=== PATIENT | female | born 1965 | race Caucasian/White ===

== ENCOUNTER 2020-10-30 17:16 | Emergency (ER) | payer BC, OTHER ==
--- NOTE | 2020-10-30 19:18 | RAD REPORT ---
EXAM DESCRIPTION: MRI - Brain W/Wo Cont - 10/30/2020 6:47 pm CLINICAL HISTORY: Visual disturbance COMPARISON: None TECHNIQUE: Axial, sagittal, and coronal magnetic images of the brain were obtained. 14 cc MultiHance administered intravenously FINDINGS: No significant abnormal signal within the brain The ventricles are normal in caliber. Diffusion-weighted/ ADC mapping sequences do not demonstrate evidence of an acute infarction. No abnormal enhancement within the brain is seen. An extra-axial fluid collection is not noted. Fluid within the sinuses/mastoids is not seen. Mucus retention cysts left maxillary sinus. Minimal mu coperiosteal thickening of sinuses. IMPRESSION: No acute intracranial abnormality displayed
[2020-10-30 20:09] LABS: Absolute Lymphocytes (CBC) 1.6 K/uL (0.7-4.9); Basophils % 0.4 % (0-1.3); Hematocrit 32.6 % (36.0-45.0); Lymphocytes % 35.9 % (15.3-44.8); MPV 6.5 fL (7.6-11.3); RBC Red Blood Cell Count 3.74 M/uL (3.86-4.86)
[2020-10-30] MEDS ORDERED: TETRACAINE HCL 0.5% 4ML OPTH ONE (20:15)
[2020-10-30] MEDS ORDERED: FLUORESCEIN SODIUM 1 MG/WRAP ONE (20:15)
[2020-10-30 20:21] LABS: Potassium 3.7 mmol/L (3.5-5.1)
--- NOTE | 2020-10-30 21:06 | EDPHYS ---
Physician Documentation [facility] Name: Joanne Morales Age: 55 yrs Sex: Female : 1965 Arrival Date: 10/30/2020 Time: 17:19 Bed 6 Private MD: ED Physician Seven Dover HPI: 10/30 19:45 This 55 yrs old Female presents to ER via Ambulatory with complaints of cp Vision Problem. 19:45 The patient is experiencing double vision, to the right eye. cp 19:45 Onset: The symptoms/episode began/occurred yesterday. Duration: the symptoms are cp continuous. Patient wears glasses. 19:45 Patient reports symptoms started last week with headache on right side of head. Patient cp reports being seen at [facility] and having head CT that was negative. Patient reports she f/u with physician Monday and was diagnosed with herpes ophthalmicus of the right side. Patient reports she has been taking prescribed Valcyclovir, gabapentin, Trifluridine eye drops and Prednisolone eye drops. Patient reports she started having double vision of right eye yesterday and was referred to ED today by eye doctor, DR Yee, for evaluation. 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 - Social history:: Smoking status: Patient denies any tobacco usage or history of. ROS: 19:50 Eyes: Positive for blurry vision, pain, redness, of the right eye, Negative for cp discharge, foreign body sensation, vision loss. 19:50 ENT: Negative for drainage from ear(s), ear pain, sore throat, difficulty swallowing, difficulty handling secretions. 19:50 Constitutional: Negative for body aches, chills, fever, poor PO intake. cp 19:50 Neck: Negative for pain with movement, pain at rest, stiffness. 19:50 Cardiovascular: Negative for chest pain, edema, palpitations. 19:50 Respiratory: Negative for cough, shortness of breath, wheezing. 19:50 Abdomen/GI: Negative for abdominal pain, nausea, vomiting, and diarrhea. 19:50 Skin: Positive for rash, of the right side of face. 19:50 Neuro: Positive for headache, of the right side of head, Negative for altered mental status, dizziness, weakness. 19:50 All other systems are negative. Exam: 20:00 Constitutional: The patient appears in no acute distress, alert, awake, non-toxic, well cp developed, well nourished. 20:00 Head/face: Noted is rash, consistent with herpes zoster cp 20:00 Eyes: Pupils: equal, round, and reactive to light and accomodation, Extraocular movements: intact throughout, Conjunctiva: injected, in the right eye, mild, Corneas: no acute changes, negative for dendritic lesions, abrasion, is not appreciated, foreign body, is not appreciated, a fluorescein strip employed to appreciate the findings, Examination of the other eye reveals no obvious gross abnormality. 20:00 ENT: External ear(s): are unremarkable, Ear canal(s): are normal, clear, TM's: dullness, bilaterally, Nose: is normal, Mouth: Lips: moist, Oral mucosa: pink and intact, moist, Posterior pharynx: Airway: no evidence of obstruction, patent. 20:00 Neck: ROM/movement: is normal, is supple, without pain, no range of motions limitations, no meningismus. 20:00 Chest/axilla: Inspection: normal. 20:00 Cardiovascular: Rate: normal. 20:00 Respiratory: the patient does not display signs of respiratory distress, Respirations: normal, no use of accessory muscles, no retractions. 20:00 Skin: cellulitis, is not appreciated. 20:00 Neuro: Orientation: to person, place \T\ time. Mentation: is normal, Cerebellar function: is grossly normal, Motor: moves all fours, strength is normal, Sensation: is normal. 20:15 Visual Acuity: I have reviewed the nursing documentation. cp Vital Signs: 17:29 BP 138 / 72; Pulse 81; Resp 17; Temp 98.3; Pulse Ox 100% ; Weight 64.41 kg; Height 5 ll1 ft. 4 in. (162.56 cm); Pain 3/10; 19:35 BP 142 / 65; Pulse 65; Resp 16 S; Pulse Ox 100% on R/A; ca1 21:14 BP 132 / 76; Pulse 63; Resp 16 S; Pulse Ox 100% on R/A; ca1 17:29 Body Mass Index 24.37 (64.41 kg, 162.56 cm) ll1 Visual Acuity: 20:11 Left Eye Visual acuity 20/25, ; Right Eye Visual acuity 20/50, ; Both Eyes Visual ca1 acuity 20/30; With Lenses; MDM: 19:43 Patient medically screened. cp 20:00 Differential diagnosis: Infectious conjunctivitis in right eye. encephalitis. cp 20:45 Physician consultation: Jayjay Messina MD was contacted at 20:35, regarding consult, cp patient's condition, discussed results of exam, current medication treatment and normal Brain MRI results. Recommends discharge to home and patient can f/u in clinic. Start patient on Medrol dose salvador and oral Topamax 25 mg at bedtime for pain. 21:05 Data reviewed: vital signs, nurses notes, lab test result(s), radiologic studies, MRI, cp and as a result, I will discharge patient. 21:05 Counseling: I had a detailed discussion with the patient and/or guardian regarding: the cp historical points, exam findings, and any diagnostic results supporting the discharge/admit diagnosis, lab results, radiology results, to return to the emergency department if symptoms worsen or persist or if there are any questions or concerns that arise at home, recommend f/u with neurology, DR Messina, next week for reevaluation. 10/30 17:40 Order name: CBC with Diff; Complete Time: 20:23 kdr 10/30 20:24 Interpretation: Normal except: RBC 3.74; HGB 11.3; HCT 32.6; MN% 14.2. 10/30 17:40 Order name: Chem 7; Complete Time: 20:23 kdr 10/30 20:24 Interpretation: Normal except: CL 108; BUN 21; GFR 60. cp 10/30 17:40 Order name: MRI - Brain W/Wo Cont; Complete Time: 19:29 kdr 10/30 19:44 Order name: Visual Acuity; Complete Time: 20:10 cp 10/30 19:44 Order name: Eye Tray; Complete Time: 20:11 cp 10/30 19:44 Order name: Fluoresene Opth strip; Complete Time: 20:11 cp Administered Medications: 20:17 Drug: Tetracaine Drops 0.5 % 1 drops {Note: by VICKY Ovalles.} Route: Ophthalmic; Site: ca1 right eye; 20:54 Drug: SOLU-Medrol (methylPrednisoLONE) 80 mg Route: IVP; Site: right antecubital; ca1 21:22 Follow up: Response: No adverse reaction ca1 20:54 Drug: NS 0.9% 500 ml Route: IV; Rate: bolus; Site: right antecubital; ca1 21:23 Follow up: Response: No adverse reaction; IV Status: Completed infusion; IV Intake: ca1 500ml Disposition: 21:30 Chart complete. 10/31 07:44 Co-signature as Attending Physician, Seven Dover MD. 7 Disposition: 10/30/20 21:05 Discharged to Home. Impression: Visual disturbances - right eye blurry vision, Other herpes zoster eye disease - right. - Condition is Stable. - Discharge Instructions: Blurred Vision, Adult, Shingles. - Prescriptions for Topamax 25 mg Oral tablet - take 1 tablet by ORAL route At bedtime in the morning and evening; 30 tablet. Medrol (Salvador) 4 mg Oral Tablets, Dose Pack - take 1 tablet by ORAL route as directed - follow package instructions; 1 packet. - Medication Reconciliation Form, Thank You Letter, Antibiotic Education, Prescription Opioid Use form. - Follow up: Jayjay Messina MD; When: next week; Reason: Recheck today's complaints. - Problem is new. - Symptoms are unchanged. Signatures: Dispatcher [employer] EDMS Josr Bender PA PA cp Acob, Cheryl, RN RN ca1 Andreina Melgoza RN RN 1 Seven Dover MD MD 7 Corrections: (The following items were deleted from the chart) 10/30 21:23 21:05 10/30/2020 21:05 Discharged to Home. Impression: Visual disturbances - right eye ca1 blurry visionOther herpes zoster eye disease - right. Condition is Stable. Forms are Medication Reconciliation Form, Thank You Letter, Antibiotic Education, Prescription Opioid Use. Follow up: Jayjay Messina; When: next week; Reason: Recheck today's complaints. Problem is new. Symptoms are unchanged. 10/31 10:48 10/30 19:45 Patient reports symptoms started last week with headache on right side of cp head. Patient reports being seen at [place] and having head CT that was negative. Patient reports she f/u with physician Monday and was diagnosed with herpes ophthalmicus of the right side. Patient reports she has been taking prescribed Valcyclovir, gabapentin, Trifluridine eye drops and Prednisolone eye drops. Patient reports she started having double vision of right eye yesterday and was referred to ED today by eye doctor for evaluation. cp
--- NOTE | 2020-10-30 21:06 | ER ---
Nurse's Notes [facility] Name: Joanne Morales Age: 55 yrs Sex: Female : 1965 Arrival Date: 10/30/2020 Time: 17:19 Bed 6 Private MD: Diagnosis: Other herpes zoster eye disease-right;Visual disturbances-right eye blurry vision Presentation: 10/30 17:29 Chief complaint: Patient states: Awoke yesterday morning with double vision. Saw Dr. lianne Yee today, sent to eval. possible 6th cranial nerve zoster. Shingles diagnosed last week R face. Coronavirus screen: Client denies travel out of the [place] in the last 14 days. At this time, the client does not indicate any symptoms associated with coronavirus-19. Ebola Screen: Patient denies travel to an Ebola-affected area in the 21 days before illness onset. Initial Sepsis Screen: Does the patient meet any 2 criteria? No. Patient's initial sepsis screen is negative. Does the patient have a suspected source of infection? Yes: Skin breakdown/wound. Risk Assessment: Do you want to hurt yourself or someone else? Patient reports no desire to harm self or others. Onset of symptoms was October 29, 2020. 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 - Social history:: Smoking status: Patient denies any tobacco usage or history of. Screenin:31 Abuse screen: Denies threats or abuse. Denies injuries from another. Nutritional ca1 screening: No deficits noted. Tuberculosis screening: No symptoms or risk factors identified. Fall Risk Assessment: 19:31 General: Appears in no apparent distress. comfortable, Behavior is calm, cooperative, ca1 appropriate for age. Pain: Complains of pain in face, R side Pain currently is 6 out of 10 on a pain scale. Pain began a week ago. Neuro: Level of Consciousness is awake, alert, obeys commands, Oriented to person, place, time, situation, Reports diplopia, on R eye. Cardiovascular: Heart tones S1 S2 present Capillary refill < 3 seconds. Respiratory: Airway is patent Respiratory effort is even, unlabored, Respiratory pattern is regular, symmetrical, Breath sounds are clear bilaterally. GI: Abdomen is flat, Bowel sounds present X 4 quads. Abd is soft and non tender X 4 quads. : No signs and/or symptoms were reported regarding the genitourinary system. EENT: Reports my doctor said I got Nerve palsy caused by the Shingles so I am seeing double on my R eye. Derm: Skin is intact, is healthy with good turgor, Skin is pink, warm \T\ dry. Rash noted that is raised, vesicular, on face. Musculoskeletal: Circulation, motion, and sensation intact. Capillary refill < 3 seconds. 20:30 Reassessment: Patient appears in no apparent distress at this time. Patient and/or ca1 family updated on plan of care and expected duration. Pain level reassessed. Patient is alert, oriented x 3, equal unlabored respirations, skin warm/dry/pink. 21:14 Reassessment: Patient appears in no apparent distress at this time. Patient and/or ca1 family updated on plan of care and expected duration. Pain level reassessed. Patient is alert, oriented x 3, equal unlabored respirations, skin warm/dry/pink. For Discharge once fluid is completed. Vital Signs: 17:29 BP 138 / 72; Pulse 81; Resp 17; Temp 98.3; Pulse Ox 100% ; Weight 64.41 kg; Height 5 ll1 ft. 4 in. (162.56 cm); Pain 3/10; 19:35 BP 142 / 65; Pulse 65; Resp 16 S; Pulse Ox 100% on R/A; ca1 21:14 BP 132 / 76; Pulse 63; Resp 16 S; Pulse Ox 100% on R/A; ca1 17:29 Body Mass Index 24.37 (64.41 kg, 162.56 cm) ll1 Visual Acuity: 20:11 Left Eye Visual acuity 20/25, ; Right Eye Visual acuity 20/50, ; Both Eyes Visual ca1 acuity 20/30; With Lenses; ED Course: 17:19 Patient arrived in ED. as 17:24 Fox Loera MD is Attending Physician. kdr 17:33 Triage completed. ll1 17:34 Arm band placed on. ll1 18:44 MRI - Brain W/Wo Cont In Process Unspecified. EDMS 19:24 Jessie Johnson, RN is Primary Nurse. ca1 19:29 Josr Bender PA is PHCP. cp 19:29 Seven Dover MD is Attending Physician. cp 19:31 Patient has correct armband on for positive identification. Bed in low position. Call ca1 light in reach. Side rails up X 1. Pulse ox on. NIBP on. Warm blanket given. 21:01 Jayjay Messina MD is Referral Physician. cp 21:21 No provider procedures requiring assistance completed. IV discontinued, intact, ca1 bleeding controlled, No redness/swelling at site. Pressure dressing applied. Administered Medications: 20:17 Drug: Tetracaine Drops 0.5 % 1 drops {Note: by VICKY Ovalles.} Route: Ophthalmic; Site: ca1 right eye; 20:54 Drug: SOLU-Medrol (methylPrednisoLONE) 80 mg Route: IVP; Site: right antecubital; ca1 21:22 Follow up: Response: No adverse reaction ca1 20:54 Drug: NS 0.9% 500 ml Route: IV; Rate: bolus; Site: right antecubital; ca1 21:23 Follow up: Response: No adverse reaction; IV Status: Completed infusion; IV Intake: ca1 500ml Intake: 21:23 IV: 500ml; Total: 500ml. ca1 Outcome: 21:05 Discharge ordered by . cp 21:21 Discharged to home ambulatory, with family. ca1 21:21 Condition: stable 21:21 Discharge instructions given to patient, Instructed on discharge instructions, follow up and referral plans. medication usage, Demonstrated understanding of instructions, follow-up care, medications, Prescriptions given X 2. 21:23 Patient left the ED. ca1 Signatures: Dispatcher [employer] EDMS Fox Loera MD MD kdr Martinez, Amelia as Josr Bender PA PA cp Jessie Johnson RN RN ca1 Andreina Melgoza RN RN ll1
[2020-10-30] MEDS ORDERED: METHYLPREDNISOLONE 40 MG INJ ONE (21:12)
[2020-10-30] MEDS ORDERED: NA CHLORIDE 0.9% 500 ML ONE (21:12)
[2020-10-30 21:28] VITALS: TEMP 98.3; O2SAT 100
[2020-10-30 21:32] VITALS: BP 132/76
== END 2020-10-30 21:23 | disposition home or self-care (01) ==
LOC: ER 17:16
DX: B02.30 Zoster ocular disease, unspecified (principal); Z88.2 Allergy status to sulfonamides
CPT/HCPCS: 85025; 80048; 36415; 70553; 96374; 99284; A9577; J7040; J2920

== ENCOUNTER 2022-09-26 19:19 | Emergency (ER) | payer BC, OTHER ==
--- OUTSIDE RECORDS SUMMARY | 2022-09-26 19:57 | XMS REPORT | Continuity of Care Document ---
:1965 Author Organization [facility] t Address [address] [place] [address] [address] [place] [address] Care Team Providers Name Role Phone Johanny LINDSAY, Roshni Rodriguez Primary Care Physician [phone] ROSA ELENA RAZO Attending Clinician Unavailable KARIN BLUNT Attending Clinician Unavailable LAB90 Attending Clinician Unavailable ROSHNI ORLANDO Attending Clinician Unavailable AYDIN HERNANDEZ Attending Clinician Unavailable Johanny LINDSAY, Roshni Rodriguez Attending Clinician [phone] BREANNE MOE Attending Clinician Unavailable Morgan Godoy MD Attending Clinician [phone] YOBANY ROSALES Attending Clinician Unavailable MORGAN GODOY Attending Clinician Unavailable LAB39 Attending Clinician Unavailable KIM VITALE Attending Clinician Unavailable Payers Payer Name Policy Type Policy Number Effective Date Expiration Date [place] [address] 2 [id number] 2022 00:00:00 DEGREE BENEFIT [employer] 2 [id number] 2020 00:00:00 Problems Condition Condition Condition Status Onset Resolution Last Treating Co mments Source Name Details Category Date Date Treatment Clinician Date Dermatitis Dermatitis Disease Active 2021-06 K elsey 2-12 Seybold 00:00: - 00 Externa l Pain of Pain of Disease Active 2021-06 Sandhya right hand right hand 2-12 Se ybold 00:00: - 00 Externa l Ganglion Ganglion Disease Active 2021-06 Kelse y cyst of cyst of 2-12 Seybold flexor flexor 00:00: - tendon tendon 00 Externa sheath of sheath of l finger of finger of right hand right hand Elevated Elevated Disease Active Kelse y cholestero cholestero 609 Se ybold l - Not l - Not 00:00: - Controlled Controlled 00 Ex terna l Postmenopa Postmenopa Disease Active K elsey usal - usal - 6 Seybold Controlled Controlled 00:00: - 00 Externa l Racing Racing Disease Active Sandhya heart beat heart beat 16 Se ybold - Not - Not 00:00: - Controlled Controlled 00 Ex terna l Shingles Shingles Disease Active Kelse y rash rash 616 Seybold 00:00: - 00 Externa l Insomnia Insomnia Disease Active Kelse y 16 Seybold 00:00: - 00 Externa l Allergies, Adverse Reactions, Alerts Allergy Allergy Status Severity Reaction(s) Onset Inactive Treating Comm ents Source Name Type Date Date Clinician Sulfa Propensi Active Sandhya Drugs ty to 6-08 Seybold adverse 00:00: reaction 00 s Sulfa Propensi Active Sandhya Drugs ty to 6-08 Seybold adverse 00:00: - reaction 00 Externa s l Social History Social Habit Start Date Stop Date Quantity Comments Source Alcohol intake 2022-06-20 2022-06-20 Ex-drinker Sadnhya Shoemaker bold - 00:00:00 00:00:00 (finding) External Tobacco use and 2020-10-26 2020-10-26 Smokeless tobacco Ke lsey Seybold - exposure 00:00:00 00:00:00 non-user External Sex [birth year] At [birth year] F Sandhya Se ybold - 00:00:00 00:00:00 External Smoking Status Start Date Stop Date Source Never smoked tobacco Sandhya Matthews old - External Medications Ordered Filled Start Stop Current Ordering Indication Dosage Frequency Signature Comments Components Source Medication Medication Date Date Medication? Clinician (SIG) Name Name Methylpredn 2022- No [id number] 40mg Sandhya isolone 06-20 9102 Seybold Acetate 21:15: 22:27 - (Depo-Medro 00 :00 Externa l) 40 mg/ml l - Physician Administere d (J1030) Methylpredn 2022- No [id number] 40mg 40 mg, Sandhya isolone 06-20 9102 Physician Seybol d Acetate 21:15: 22:27 Administer - (Depo-Medro 00 :00 ed, ONCE, Ext rai l) 40 mg/ml 1 dose, On l - Physician Mon Administere 06/20/22 at d (J1030) 1515 Estradiol Yes [id number] 1mg Take 1 Sandhya MG oral 6-09 tablet (1 Seybold Tablet 00:00: mg total) - 00 by mouth Externa daily l Estradiol Yes [id number] 1mg Take 1 Sandhya MG oral 6-09 tablet (1 Seybold Tablet 00:00: mg total) - 00 by mouth Externa daily l Trazodone Yes [id number] 50mg Take 1 K elsey HCl 50 MG 6-09 tablet (50 Seyb old oral Tablet 00:00: mg total) - 00 by mouth Externa nightly l Estradiol Yes [id number] 1mg Take 1 Sandhya MG oral 6-09 tablet (1 Seybold Tablet 00:00: mg total) - 00 by mouth Externa daily l Estradiol Yes [id number] 1mg Take 1 Sandhya MG oral 6-09 tablet (1 Seybold Tablet 00:00: mg total) - 00 by mouth Externa daily l Trazodone 2022- No [id number] 50mg Take 1 Sandhya HCl 50 MG 6-09 01-10 tablet (50 Sey bold oral Tablet 00:00: 00:00 mg total) - 00 :00 by mouth Externa nightly l AMITRIPTYLI Yes 25mg Take 25 mg Sandhya NE HCL IM 4-25 by mouth Seybol d 15:52: Takes at 07 night as per patient. AMITRIPTYLI 2020-06 Yes 25mg Take 25 mg Sandhya NE HCL IM 1-10 by mouth Seybol d 15:50: Takes at 53 night as per patient. Amitriptyli 2020-06 Yes [id number] 25mg TAKE 1 K elsey ne HCl 25 0-07 TABLET (25 Seyb old MG oral 00:00: MG TOTAL) Tablet 00 BY MOUTH NIGHTLY Amitriptyli 2020-06 Yes [id number] 25mg TAKE 1 K elsey ne HCl 25 0-07 TABLET (25 Seyb old MG oral 00:00: MG TOTAL) Tablet 00 BY MOUTH NIGHTLY Estradiol 1 Yes [id number] 1mg Take 1 Sandhya MG oral 6-16 tablet (1 Seybold Tablet 00:00: mg total) 00 by mouth daily Estradiol 1 Yes [id number] 1mg Take 1 Sandhya MG oral 6-16 tablet (1 Seybold Tablet 00:00: mg total) 00 by mouth daily Acetaminoph 2020-0 Yes [id number] 2 tablets Sandhya en 650 MG 5-27 every 8 Seybold oral Tab CR 00:00: hours as - 00 needed for Externa pain l Acetaminoph 2020-0 Yes [id number] 2 tablets Sandhya en 650 MG 5-27 every 8 Seybold oral Tab CR 00:00: hours as 00 needed for pain Acetaminoph 2020-0 Yes [id number] 2 tablets Sandhya en 650 MG 5-27 every 8 Seybold oral Tab CR 00:00: hours as 00 needed for pain Acetaminoph 2020-0 Yes [id number] 2 tablets Sandhya en 650 MG 5-27 every 8 Seybold oral Tab CR 00:00: hours as - 00 needed for Externa pain l Acetaminoph 2020-0 Yes [id number] 2 tablets Sandhya en 650 MG 5-27 every 8 Seybold oral Tab CR 00:00: hours as - 00 needed for Externa pain l Acetaminoph 2020-0 Yes [id number] 2 tablets Sandhya en 650 MG 5-27 every 8 Seybold oral Tab CR 00:00: hours as - 00 needed for Externa pain l Vital Signs Vital Name Observation Time Observation Value Comments Source Body height 2022-06-20 20:45:00 162.6 cm Sandhya Arnulfo conradobomeri - External Body weight 2022-06-20 20:45:00 70.761 kg Asndhya Arnulfo alexei - External BMI 2022-06-20 20:45:00 26.78 kg/m2 Sandhya S eybold - External Systolic blood 2022-06-14 22:08:00 129 mm[Hg] Sandhya Seybold - pressure External Diastolic blood 2022-06-14 22:08:00 62 mm[Hg] Kelse y Seybold - pressure External Heart rate 2022-06-14 22:08:00 67 /min Sandhya S eybold - External Body temperature 2022-06-14 22:08:00 36.11 Bridget Khadra ey Seybold - External Respiratory rate 2022-06-14 22:08:00 15 /min Khadra ey Seybold - External Body height 2022-06-14 22:08:00 162.6 cm Sandhya S eybold - External Body weight 2022-06-14 22:08:00 71.124 kg Sandhya S eybold - External BMI 2022-06-14 22:08:00 26.91 kg/m2 Sandhya Arredondo eybold - External Oxygen saturation in 2022-06-14 22:08:00 99 /min Sandhya Perryybold - Arterial blood by External Pulse oximetry Systolic blood 2022-05-16 22:11:00 124 mm[Hg] Sandhya Seybold - pressure External Diastolic blood 2022-05-16 22:11:00 60 mm[Hg] Salvadorse y Seybold - pressure External Heart rate 2022-05-16 22:11:00 65 /min Sandhya Arredondo eybold - External Body temperature 2022-05-16 22:11:00 35.67 Bridget Khadra ey Seybold - External Respiratory rate 2022-05-16 22:11:00 14 /min Khadra ey Seybold - External Body height 2022-05-16 22:11:00 162.6 cm Sandhya S eybold - External Body weight 2022-05-16 22:11:00 71.215 kg Sandhya S eybold - External BMI 2022-05-16 22:11:00 26.95 kg/m2 Sandhya S eybold - External Systolic blood 2021-09-27 20:51:00 125 mm[Hg] Sandhya Seybold pressure Diastolic blood 2021-09-27 20:51:00 69 mm[Hg] Kelse y Seybold pressure Heart rate 2021-09-27 20:51:00 66 /min Sandhya campbomeri Body temperature 2021-09-27 20:51:00 36.56 Bridget Khadra ey Seybold Respiratory rate 2021-09-27 20:51:00 14 /min Khadra camp Seybomar Body height 2021-09-27 20:51:00 162.6 cm Sandhya linda Body weight 2021-09-27 20:51:00 68.402 kg Sandhya campbomeri BMI 2021-09-27 20:51:00 25.88 kg/m2 Sandhya linda Oxygen saturation in 2021-09-27 20:51:00 99 /min Sandhya To Arterial blood by Pulse oximetry Procedures This patient has no known procedures. Encounters Start End Encounter Admission Attending Care Care Encounter Source Date/Time Date/Time Type Type Clinicians Facility Department ID 2022-07-21 2022-07-21 Outpatient ROSA ELENA RAZO [id number] Sandhya 15:15:00 15:15:00 Seybol d 2022-06-20 2022-06-20 Outpatient SANDHYA BLUNT [id number] Sandhya 14:30:00 14:30:00 KARIN Seybol d 2022-06-20 2022-06-20 Outpatient SANDHYA LUNDBERG [id number] Sandhya 14:25:00 14:25:00 Seybol d 2022-06-20 2022-06-20 Outpatient SANDHYA BLUNT [id number] Sandhya 00:00:00 00:00:00 KARIN Seybol d 2022-06-17 2022-06-17 Outpatient ROSA ELENA RAZO [id number] Sandhya 13:15:00 13:15:00 Seybol d 2022-06-14 2022-06-14 Outpatient LAB90 SANDHYA LUNDBERG [id number] Sandhya 16:35:00 16:35:00 Seybol d 2022-06-14 2022-06-14 Outpatient SANDHYA ORLANDO [id number] Sandhya 15:45:00 15:45:00 ROSHNI Seybol d 2022-05-16 2022-05-16 Outpatient SANDHYA HERNANDEZ [id number] Sandhya 15:45:00 15:45:00 AYDIN Seybol d 2022-01-05 2022-01-05 Outpatient LAB90 SANDHYA LUNDBERG [id number] Sandhya 09:50:00 09:50:00 Seybol d 2022-01-05 2022-01-05 Outpatient JOHANNYSANDHYA ECKERT [id number] Sandhya 00:00:00 00:00:00 ROSHNI Seybol d 2021-11-11 2021-11-11 Office Diego Orlando [id number] Sandhya 15:30:00 16:00:00 Visit Roshni Rebolledo [id number] Se rasta Rodriguez [id number] 2021-10-06 2021-10-06 Outpatient SANDHYA ORLANDO [id number] Sandhya 00:00:00 00:00:00 ROSHNI Seybol d 2021-09-27 2021-09-27 Office Diego Orlando [id number] Sandhya 15:30:00 16:00:00 Visit Roshni Rebolledo [id number] Se serinaomar Jennifer [id number] 2021-04-14 2021-04-14 Outpatient BREANNE MOE [id number] Sandhya 16:25:00 16:25:00 Seybol d 2021-04-14 2021-04-14 Office JYOTI Godoy [id number] Sandhya 15:46:32 16:01:32 Visit [facility] [id number] S alexei Treviño [id number] 2021-01-26 2021-01-26 Outpatient SANDHYA ROSALES [id number] Sandhya 08:30:00 08:30:00 MUHAMMED Seybo ld 2021-01-13 2021-01-13 Outpatient BREANNE MOE [id number] Sandhya 17:05:00 17:05:00 Seybol d 2021-01-13 2021-01-13 Outpatient SANDHYA GODOY [id number] Sandhya 15:45:00 15:45:00 MORGAN Seybo ld 2020-12-23 2020-12-23 Outpatient BREANNE MOE SANDHYA LUNDBERG [id number] Sandhya 12:00:00 12:00:00 Seybol d 2020-12-23 2020-12-23 Outpatient LAB39 SANDHYA LUNDBERG [id number] Sandhya 09:50:00 09:50:00 Seybol d 2020-12-23 2020-12-23 Outpatient SANDHYA GODOY [id number] Sandhya 08:45:00 08:45:00 MORGAN Seybo ld 2020-12-22 2020-12-22 Outpatient SANDHYA ROSALES [id number] Sandhya 00:00:00 00:00:00 MUHAMMED Seybo ld 2020-12-17 2020-12-17 Outpatient SANDHYA ROSALES [id number] Sandhya 11:00:00 11:00:00 MUHAMMED Seybo ld 2020-12-15 2020-12-15 Outpatient SANDHYA VITALE [id number] Sandhya 00:00:00 00:00:00 KMI Seybol d 2020-12-15 2020-12-15 Outpatient SANDHYA ORLANDO [id number] Sandhya 00:00:00 00:00:00 ROSHNI Seybol d Results This patient has no known results.
--- NOTE | 2022-09-26 22:04 | RAD REPORT ---
EXAM DESCRIPTION: Glenys Single View09/26/2022 9:45 pm CLINICAL HISTORY: dizzy, nauseated COMPARISON: No Comparisons> TECHNIQUE: Portable AP view of the chest. FINDINGS: The lungs are clear. No pneumothorax or effusion. The cardiomediastinal contours are unrem arkable. IMPRESSION: No acute cardiopulmonary process.
[2022-09-26 22:24] LABS: Hematocrit 38.2 % (36.0-45.0); Lymphocytes % 8.2 % (15.3-44.8); MCV 88.1 fL (80-100); MPV 7.4 fL (7.6-11.3); RBC Red Blood Cell Count 4.34 M/uL (3.86-4.86)
[2022-09-26 22:27] LABS: Protime INR 0.97
[2022-09-26 22:38] LABS: ALT/SGPT 25 U/L (13-56); AST/SGOT 12 U/L (15-37); Alkaline Phosphatase 60 U/L (45-117); BUN Blood Urea Nitrogen 20 mg/dL (7-18); Bicarbonate 27 mEq/L (21-32); Bilirubin Total 0.3 mg/dL (0.2-1.0); Glomerular Filtration Rate 101 ml/min (=/>90); Glucose Level 105 mg/dL (74-106); NT PRO-BNP 93 pg/mL (<125); Potassium 4.2 mEq/L (3.5-5.1); Protein, Total 7.2 g/dL (6.4-8.2); Sodium Level 135 mEq/L (136-145); Troponin High Sensitivity 11.3 pg/mL (<58.9)
[2022-09-26 22:39] LABS: Bilirubin Direct < 0.1 mg/dL (0-0.2)
--- NOTE | 2022-09-26 23:50 | ER ---
Nurse's Notes [facility] Name: Joanne Morales Age: 57 yrs Sex: Female : 1965 Arrival Date: 09/26/2022 Time: 19:19 Bed 19 Private MD: Diagnosis: Palpitations;Weakness Presentation: 09/26 20:23 Chief complaint: Patient states: "I started feeling palpitations yesterday, and today I vc1 was at my exercising class and it happened, my heart rate was 138 and I felt dizzy and nauseous.". Coronavirus screen: Vaccine status: Patient reports being unvaccinated. At this time, the client does not indicate any symptoms associated with coronavirus-19. Ebola Screen: Patient negative for fever greater than or equal to 101.5 degrees Fahrenheit, and additional compatible Ebola Virus Disease symptoms Patient denies exposure to infectious person. Patient denies travel to an Ebola-affected area in the 21 days before illness onset. No symptoms or risks identified at this time. Initial Sepsis Screen: Does the patient meet any 2 criteria? No. Patient's initial sepsis screen is negative. Does the patient have a suspected source of infection? No. Patient's initial sepsis screen is negative. Risk Assessment: Do you want to hurt yourself or someone else? Patient reports no desire to harm self or others. Onset of symptoms was September 25, 2022. 20:23 Method Of Arrival: Ambulatory vc1 20:23 Acuity: DEION 4 vc1 Triage Assessment: 20:27 General: Appears in no apparent distress. comfortable, Behavior is calm, cooperative, vc1 appropriate for age. Pain: Complains of pain in neck. EENT: No deficits noted. Neuro: Level of Consciousness is awake, alert, obeys commands, Oriented to person, place, time, situation, Appropriate for age. Cardiovascular: No deficits noted. Cardiovascular: Reports diaphoresis, lightheadedness, nausea, palpitations, vomiting. Respiratory: Airway is patent Respiratory effort is even, unlabored, Respiratory pattern is regular, symmetrical. GI: No deficits noted. No signs and/or symptoms were reported involving the gastrointestinal system. : No deficits noted. No signs and/or symptoms were reported regarding the genitourinary system. Historical: - Allergies: 20:25 Sulfa (Sulfonamide Antibiotics); vc1 - Home Meds: 20:25 estradiol 1 mg Oral tablet daily [Active]; vc1 - PMHx: 20:25 Endometriosis of vagina; thyroid tumor; vc1 - PSHx: 20:25 Total abdominal hysterectomy; vc1 - Immunization history:: Client reports having NOT received the Covid vaccine. - Social history:: Smoking status: Patient denies any tobacco usage or history of. Screenin:27 Abuse screen: Denies threats or abuse. Nutritional screening: No deficits noted. vc1 Tuberculosis screening: No symptoms or risk factors identified. 22:07 [facility] ED Fall Risk Assessment (Adult) History of falling in the last 3 months, mb9 including since admission No falls in past 3 months (0 pts) Confusion or Disorientation No (0 pts) Intoxicated or Sedated No (0 pts) Impaired Gait No (0 pts) Mobility Assist Device Used No (0 pt) Altered Elimination No (0 pt) Score/Fall Risk Level 0 - 2 = Low Risk Oriented to surroundings, Maintained a safe environment, Educated pt \\T\\ family on fall prevention, incl call for assistance when getting out of bed. Assessment: 22:02 General: Appears in no apparent distress. Behavior is calm, cooperative. Pain: Denies mb9 pain. Neuro: Malone Agitation-Sedation Scale (RASS): 0 - Alert and Calm Level of Consciousness is awake, alert, obeys commands, Oriented to person, place, time, situation, Appropriate for age. 22:03 Cardiovascular: Reports lightheadedness, palpitations, since this afternoon. Pt denies mb9 chest pain, palpitations, and lightheaded now. Cardiovascular: Heart tones S1 S2 present Rhythm is regular. Respiratory: Airway is patent Respiratory effort is even, unlabored, Respiratory pattern is regular, symmetrical, Breath sounds are clear bilaterally. Derm: Skin is pink, warm \\T\\ dry. Musculoskeletal: Range of motion: intact in all extremities. 09/27 00:05 Reassessment: No changes from previously documented assessment. Patient and/or family mb9 updated on plan of care and expected duration. Pain level reassessed. Patient is alert, oriented x 3, equal unlabored respirations, skin warm/dry/pink. Patient states feeling better. Patient states symptoms have improved. Vital Signs: 09/26 20:23 BP 157 / 78; Pulse 67; Resp 17; Temp 98.2(O); Pulse Ox 100% ; Weight 68.04 kg; Height 5 vc1 ft. 4 in. ; Pain 0/10; 22:07 BP 158 / 93; Pulse 92; Resp 18; Pulse Ox 100% ; mb9 23:01 BP 152 / 52; Pulse 58; Resp 14; Pulse Ox 100% on R/A; mb9 23:09 BP 152 / 60 LA Supine; Pulse 53; oe 23:12 BP 137 / 63 LA Sitting; Pulse 59; oe 23:14 BP 150 / 67 Standing; Pulse 56; oe 09/27 00:04 BP 160 / 64; Pulse 59; Resp 16; Pulse Ox 100% ; mb9 09/26 20:23 Body Mass Index 25.75 (68.04 kg, 162.56 cm) vc1 09/26 20:23 Pain Scale: Adult vc1 ED Course: 09/26 19:25 Patient arrived in ED. ag3 20:25 Triage completed. vc1 20:27 Arm band placed on right wrist. vc1 21:12 Fox Loera MD is Attending Physician. kdr 21:39 Shiela Carey RN is Primary Nurse. mb9 21:47 XRAY Chest (1 view) In Process Unspecified. EDMS 21:55 EKG done, by ED staff, reviewed by Fox Loera MD. mb9 21:55 Missed attempt(s): 22 gauge in right antecubital area. Bleeding controlled, band aid mb9 applied, catheter tip intact. 22:07 No provider procedures requiring assistance completed. mb9 22:08 Placed in gown. Bed in low position. Call light in reach. Side rails up X 1. Client mb9 placed on continuous cardiac and pulse oximetry monitoring. NIBP monitoring applied. court monitor on. 23:50 IV discontinued, intact, bleeding controlled, No redness/swelling at site. Pressure mb9 dressing applied. Administered Medications: No medications were administered Medication: 22:08 VIS not applicable for this client. mb9 Outcome: 23:50 Discharge ordered by . kdr 09/27 00:05 Discharged to home ambulatory. mb9 Condition: stable Discharge instructions given to patient, Instructed on discharge instructions, follow up and referral plans. Demonstrated understanding of instructions, follow-up care. 00:05 Patient left the ED. mb9 Signatures: Dispatcher [employer] EDNY RittgerFox MD MD kdr Espinosa, [place] oe Gomez, Alice ag3 Ruma Vazquez RN RN vc1 Shiela Carey RN RN mb9 Corrections: (The following items were deleted from the chart) 09/26 22:04 22:02 Neuro: Malone Agitation-Sedation Scale (RASS): 0 - Alert and Calm Level of mb9 Consciousness is awake, alert, obeys commands, Oriented to person, place, time, situation, Appropriate for age mb9
--- NOTE | 2022-09-26 23:51 | EDPHYS ---
Physician Documentation [facility] Name: Joanne Morales Age: 57 yrs Sex: Female : 1965 Arrival Date: 09/26/2022 Time: 19:19 Bed 19 Private MD: ED Physician Fox Loera HPI: 09/27 02:42 This 57 yrs old Female presents to ER via Ambulatory with complaints of RAPID HEART kdr RATE, DIZZINESS. 02:42 Patient presents status post palpitations while at her exercise class. She says that kdr yesterday she had very slight sensation of heart racing or irregular heartbeat. Resolved and she did not think anything more of it at the time. Today while at her exercise class she felt the symptoms again and when she checked her smart watch, she noted that her rate was 138. She is also feeling little dizzy and nauseated. This had not happened to her before. She is otherwise in her usual state of health. She denies any other history or contributing factors at this time. She is completely back to normal at the time of initial interview and during her stay in the ED. As such she did not require any emergent intervention during her stay in the ED.. Onset: The symptoms/episode began/occurred acutely, suddenly, just prior to arrival. Severity of symptoms: At their worst the symptoms were moderate severe just prior to arrival, in the emergency department the symptoms have resolved. The patient has experienced a previous episode, yesterday. The patient has not recently seen a physician. Historical: - Allergies: 09/26 20:25 Sulfa (Sulfonamide Antibiotics); vc1 - Home Meds: 20:25 estradiol 1 mg Oral tablet daily [Active]; vc1 - PMHx: 20:25 Endometriosis of vagina; thyroid tumor; vc1 - PSHx: 20:25 Total abdominal hysterectomy; vc1 - Immunization history:: Client reports having NOT received the Covid vaccine. - Social history:: Smoking status: Patient denies any tobacco usage or history of. ROS: 09/27 02:42 Constitutional: Negative for fever, chills, and weight loss, Eyes: Negative for injury, kdr pain, redness, and discharge, ENT: Negative for injury, pain, and discharge, Neck: Negative for injury, pain, and swelling, Respiratory: Negative for shortness of breath, cough, wheezing, and pleuritic chest pain, Abdomen/GI: Negative for abdominal pain, nausea, vomiting, diarrhea, and constipation, Back: Negative for injury and pain, : Negative for injury, bleeding, discharge, and swelling, MS/Extremity: Negative for injury and deformity, Skin: Negative for injury, rash, and discoloration, Neuro: Negative for headache, weakness, numbness, tingling, and seizure activity. Psych: Negative for depression, anxiety, suicide ideation, homicidal ideation, and hallucinations, Allergy/Immunology: Negative for hives, rash, and allergies, Endocrine: Negative for neck swelling, polydipsia, polyuria, polyphagia, and marked weight changes, Hematologic/Lymphatic: Negative for swollen nodes, abnormal bleeding, and unusual bruising. Cardiovascular: Positive for palpitations, Negative for chest pain, edema, orthopnea, paroxysmal nocturnal dyspnea. Exam: 02:42 Constitutional: This is a well developed, well nourished patient who is awake, alert, kdr and in no acute distress. Head/Face: Normocephalic, atraumatic. Eyes: Pupils equal round and reactive to light, extra-ocular motions intact. Lids and lashes normal. Conjunctiva and sclera are non-icteric and not injected. Cornea within normal limits. Periorbital areas with no swelling, redness, or edema. Neck: Trachea midline, no thyromegaly or masses palpated, and no cervical lymphadenopathy. Supple, full range of motion without nuchal rigidity, or vertebral point tenderness. No Meningismus. Chest/axilla: Normal chest wall appearance and motion. Nontender with no deformity. No lesions are appreciated. Cardiovascular: Regular rate and rhythm with a normal S1 and S2. No gallops, murmurs, or rubs. Normal PMI, no JVD. No pulse deficits. Respiratory: Lungs have equal breath sounds bilaterally, clear to auscultation and percussion. No rales, rhonchi or wheezes noted. No increased work of breathing, no retractions or nasal flaring. Abdomen/GI: Soft, non-tender, with normal bowel sounds. No distension or tympany. No guarding or rebound. No evidence of tenderness throughout. Back: No spinal tenderness. No costovertebral tenderness. Full range of motion. Skin: Warm, dry with normal turgor. Normal color with no rashes, no lesions, and no evidence of cellulitis. MS/ Extremity: Pulses equal, no cyanosis. Neurovascular intact. Full, normal range of motion. Neuro: Awake and alert, GCS 15, oriented to person, place, time, and situation. Cranial nerves II-XII grossly intact. Motor strength 5/5 in all extremities. Sensory grossly intact. Cerebellar exam normal. Normal gait. Psych: Awake, alert, with orientation to person, place and time. Behavior, mood, and affect are within normal limits. Vital Signs: 09/26 20:23 BP 157 / 78; Pulse 67; Resp 17; Temp 98.2(O); Pulse Ox 100% ; Weight 68.04 kg; Height 5 vc1 ft. 4 in. ; Pain 0/10; 22:07 BP 158 / 93; Pulse 92; Resp 18; Pulse Ox 100% ; mb9 23:01 BP 152 / 52; Pulse 58; Resp 14; Pulse Ox 100% on R/A; mb9 23:09 BP 152 / 60 LA Supine; Pulse 53; oe 23:12 BP 137 / 63 LA Sitting; Pulse 59; oe 23:14 BP 150 / 67 Standing; Pulse 56; oe 09/27 00:04 BP 160 / 64; Pulse 59; Resp 16; Pulse Ox 100% ; mb9 09/26 20:23 Body Mass Index 25.75 (68.04 kg, 162.56 cm) vc1 09/26 20:23 Pain Scale: Adult vc1 MDM: 09/26 23:50 Patient medically screened. kdr 09/27 02:42 Data reviewed: vital signs, nurses notes, lab test result(s), radiologic studies. kdr Counseling: I had a detailed discussion with the patient and/or guardian regarding: the historical points, exam findings, and any diagnostic results supporting the discharge/admit diagnosis, lab results, radiology results, the need for outpatient follow up. 09/26 21:09 Order name: Basic Metabolic Panel; Complete Time: 23: snw 09/26 21:09 Order name: CBC with Diff; Complete Time: 23: snw 09/26 21:09 Order name: D-Dimer; Complete Time: 23: snw 09/26 21:09 Order name: LFT's; Complete Time: 23: snw 09/26 21:09 Order name: Magnesium; Complete Time: 23:09/26 21:09 Order name: NT PRO-BNP; Complete Time: 23:09/26 21:09 Order name: PT-INR; Complete Time: 23:09/26 21:09 Order name: Troponin HS; Complete Time: 23:09/26 21:09 Order name: XRAY Chest (1 view); Complete Time: 23:09/26 21:09 Order name: EKG; Complete Time: 21:11 09/26 21:09 Order name: Cardiac monitoring; Complete Time: 22:02 09/26 21:09 Order name: EKG - Nurse/Tech; Complete Time: 21:53 09/26 21:09 Order name: IV Saline Lock; Complete Time: :09/26 21:09 Order name: Labs collected and sent; Complete Time: 22:09/26 21:09 Order name: O2 Per Protocol; Complete Time: 22:09/26 21:09 Order name: O2 Sat Monitoring; Complete Time: 22:09/26 23:08 Order name: Orthostatic Blood Pressure; Complete Time: 23:12 kdr Administered Medications: No medications were administered Disposition Summary: 09/26/22 23:50 Discharge Ordered Location: Home kdr Problem: new kdr Symptoms: are resolved kdr Condition: Stable kdr Diagnosis - Palpitations kdr - Weakness kdr Followup: kdr - With: Private Physician - When: 2 - 3 days - Reason: If symptoms return, Further diagnostic work-up, Recheck today's complaints, Continuance of care, Re-evaluation by your physician Discharge Instructions: - Discharge Summary Sheet kdr - Weakness, [id number] kdr - Palpitations, [id number] kdr Forms: - Medication Reconciliation Form kdr - Thank You Letter kdr Signatures: Dispatcher [employer] Fox Shaver MD MD kdr Waters, Shelly, FNP-C [employer]-Kehindew Ruma Vazquez RN RN vc1
[2022-09-27 01:34] VITALS: TEMP 98.2; O2SAT 100
[2022-09-27 01:40] VITALS: BP 160/64
--- NOTE | 2022-09-28 04:54 | EKG ---
Test Date: 2022-09-26 Test Time: 21:48:19 Terminal System Operator: MB MEASUREMENT RESULTS: Intervals: Rate: 63 OR: 142 QRSD: 80 QT: 450 QTc: 460 [place]: P: 69 OR: 142 QRS: 50 T: 52 INTERPRETIVE STATEMENTS: Normal sinus rhythm Normal ECG No previous ECG available for comparison Electronically Signed On 09-28-22 04:52:14 CDT by Frederic Bustamante
== END 2022-09-27 00:05 | disposition home or self-care (01) ==
LOC: ER 19:19
DX: R00.2 Palpitations (principal); R53.1 Weakness; Z88.2 Allergy status to sulfonamides
CPT/HCPCS: 36415; 71045; 80048; 80076; 83735; 83880; 84484; 85025; 85379; 85610; 93005; 99284

== ENCOUNTER 2022-11-17 08:33 | Day surgery (SDC) | payer BC, OTHER, SELFPAY ==
[2022-11-17] MEDS ORDERED: Ringers Lactate 1,000 ML IV ONE (09:09)
[2022-11-17] MEDS ORDERED: CEFAZOLIN SODIUM 1 GM/VIAL ONE (09:09)
[2022-11-17] MEDS ORDERED: propofoL 200 MG/20 ML VIAL IV ONE (09:37)
[2022-11-17] MEDS ORDERED: FENTANYL CITR 100 MCG/2 ML ONE (09:38)
[2022-11-17] MEDS ORDERED: LIDOCAINE 2% MPF 5 ML VIAL ONE (09:38)
[2022-11-17] MEDS ORDERED: MIDAZOLAM HCL 2 MG/2 ML INJ ONE (09:39)
[2022-11-17] MEDS ORDERED: ONDANSETRON 4 MG/2 ML VIAL ONE (09:39)
[2022-11-17] MEDS ORDERED: SUCCINYLCHOLINE 20 MG/ML (10 ML) IV ONE (09:45)
[2022-11-17] MEDS ORDERED: ROCURONIUM 50 MG/5 ML VIAL IV ONE (10:01)
[2022-11-17] MEDS: LIDOCAINE HCL/EPINEPHRINE 20 ML MDV ONE ×3 (10:03→10:09)
[2022-11-17] MEDS ORDERED: dexAMETHasone 10 MG/ML VIAL ONE (10:25)
[2022-11-17] MEDS ORDERED: EPHEDRINE SULF 50 MG/ML VIAL ONE (10:30)
[2022-11-17] MEDS ORDERED: KETOROLAC 30 MG/ML INJ ONE (12:13)
[2022-11-17 12:48] VITALS: O2SAT 99
[2022-11-17] MEDS ORDERED: HYDROCODONE/APAP 5/325 MG TAB ONE (13:04)
[2022-11-17 13:45] VITALS: BP 122/54; TEMP 96.4
--- NOTE | 2022-11-17 14:29 | OP ---
Date of Procedure: 11/17/2022 Surgeon: MYRA CRANE Primary Care Physician: Unknown. Preoperative Diagnosis: Neoplasm, uncertain behavior, right thyroid gland. Postoperative Diagnosis: Benign neoplasm of right thyroid gland. Procedure: Right hemithyroidectomy with recurrent laryngeal nerve monitoring and parathyroid localiz ation with PT EYE. Anesthesia: General endotracheal anesthesia was administered. I also infiltrated approximately 1% l idocaine with 1:100,000 epinephrine. Approximately 10 mL were injected at the incision site. Estimated Blood Loss: Scant, less than 2 mL. Specimen: Submitted for frozen section to pathology for evaluation and permanent sections are [facility]. Findings: Small right thyroid lobe with evidence of a large thyroid nodule located at the superolate ral border of the lobe and posterior friability of the gland. Complications: None. Disposition: Stable. The patient tolerated the procedure well. Indications For Procedure: The patient is a pleasant 57-year-old female, who presented to my outpati ent clinic with very localized pain located right directly in the area of the right thyroid lobe. CT scan demonstrated heterogenicity of the gland and due to patient's pain and the fact that it was get ting worse since initial onset when I saw her in late June, it was decided that we would take the right thyroid gland out and obtain frozen sections and then possible total thyroidectomy if there was suspicion for cancer. All questions were answered. Risks versus benefits and complications were di scussed in detail and a consent form was signed, which was placed on the chart. Description Of Procedure: The patient was transferred from the preoperative holding area to the oper ative suite by Department of Anesthesia, placed on the operating table supine, sedated and intubated in normal fashion. A small shoulder roll was placed and she was placed into cervical extension. I i nfiltrated approximately 10 mL of 1% lidocaine with 1:100,000 epinephrine at the incision site. Then , the patient was sterilely prepped and draped. An incision was made approximately 2 fingerbreadths above the sternal notch with a #15 blade scalpel through the skin and subcutaneous tissue down to the level of the platysma. I then used monopolar el ectrocautery on a setting of 20 of coagulation to dissect down to the sternohyoid muscles. These mus cles were divided midline, thereby exposing the sternothyroid muscles directly over the thyroid fasci a. I dissected out the lateral lobe starting inferiorly and then working my way superiorly taking ca re to stay close to the gland. I used a thyroid LigaSure to perform the dissection. The inferior an d superior parathyroid glands were identified visually and as well with our PT EYE machine. The recu rrent laryngeal nerve was located in a clump of fat where it was expected to be found. The recurrent laryngeal nerve monitor with grounding electrodes was placed preoperatively and was found to be func tioning correctly and as we stimulated around the thyroid lobe, we did not detect or visualize the re current laryngeal nerves. I continued to dissect medially until we found Osiel ligament, which was t hen detached from the trachea utilizing bipolar. Once at the midline, I then clamped the midline wit h a Jacey clamp and then used a #15 blade scalpel to dissect out the whole lobe and then I used a dariela g stitch to localize the lateral lobe of the gland and a shorter stitch to localize the inferior port ion of the gland. I did notice that there was a rather large superolateral thyroid nodule, which was easily palpated and visualized. The specimen was handed off the field for frozen section analysis. I then tied off the midline of the thyroid with a 3-0 silk stick tie suture. Frozen section analysi s revealed benign thyroid nodule and inflammation of the right thyroid gland, but no evidence of carc inoma and the specimen will be sent for permanent sections for confirmation. Saline irrigation was introduced to the wound cavity and Valsalva was performed and there was no exce ssive bleeding. I used an attain hemostatic agent. This was introduced to the wound bed. I then pl aced a small quarter-inch Kameron drain and then I placed 2 sutures at the midline of the strap muscl es to hold the drain in the medial portion of the wound cavity. I then reapproximated the platysma a nd subcutaneous tissue with 3-0 and 4-0 Vicryl in a continuous and interrupted fashion. I then reapp roximated the dermis and epidermis in a subcuticular fashion with 5-0 Monocryl suture. Mastisol and Steri-Strips were placed. A small dressing was placed. She tolerated the procedure well. She will be discharged home on antibiotic and analgesic medication and will follow up in several days for dipesh cm. ZULEIKA/SUHA Voice ID: [id number] Report ID: [id number]
== END 2022-11-17 13:42 | disposition home or self-care (01) ==
LOC: OR 08:33
PROVIDERS: ATTEND Otolaryngology Facial Plastic Surgery
PROC: 0GTH0ZZ Resection of Right Thyroid Gland Lobe, Open Approach (ICD-10-PCS; principal; 2022-11-17 09:45)
DX: E04.1 Nontoxic single thyroid nodule (principal)
CPT/HCPCS: 36415; 82310; 83970; 88307; 88331; J0690; J1100; J2001; J2250; J2405; J2704; J3010; J7120

== ENCOUNTER 2022-11-18 01:17 | Emergency (ER) | payer SELFPAY ==
--- OUTSIDE RECORDS SUMMARY | 2022-11-18 01:21 | XMS REPORT | Continuity of Care Document ---
:1965 Author Organization [facility] t Address [address] [place] [address] [address] [place] [address] Care Team Providers Name Role Phone Kane LINDSAY, Roshni Rodriguez Primary Care Physician [phone] ROSA ELENA RAZO Attending Clinician Unavailable DAISY WALKER Attending Clinician Unavailable ROSHNI ORLANDO Attending Clinician Unavailable LAB90 Attending Clinician Unavailable ANDREW LUIS Attending Clinician Unavailable TRED76 Attending Clinician Unavailable DARRIUS SEVERINO Attending Clinician Unavailable KARIN BLUNT Attending Clinician Unavailable AYDIN HERNANDEZ Attending Clinician Unavailable Roshni Orlando MD Attending Clinician [phone] BREANNE MOE Attending Clinician Unavailable Morgan Godoy MD Attending Clinician [phone] YOBANY ROSALES Attending Clinician Unavailable MORGAN GODOY Attending Clinician Unavailable LAB39 Attending Clinician Unavailable KIM VITALE Attending Clinician Unavailable Payers Payer Name Policy Type Policy Number Effective Date Expiration Date [place] [id number] 2 [id number] 2022 00:00:00 DEGREE BENEFIT [employer] 2 [id number] 2022 00:00:00 Problems Condition Condition Condition Status Onset [...] Shingles Disease Active Kelse y rash rash 16 Seybold 00:00: - 00 Externa l Insomnia Insomnia Disease Active Kelse y 616 Seybold 00:00: - 00 Externa l Allergies, Adverse Reactions, Alerts Allergy Allergy Status Severity Reaction(s) Onset Inactive Treating Comm ents Source Name Type Date Date Clinician Sulfa Propensi Active [facility]a [facility] ty to 6-08 Seybold adverse 00:00: reaction 00 s Sulfa Propensi Active [facility] ty to 608 Seybold adverse 00:00: - reaction 00 Externa s l Social History Social Habit Start Date Stop Date Quantity Comments Source Gender identity 2020-11-18 Identifies as Sandhya Seybold 19:21:11 female gender - External (finding) Sexual orientation 2020-11-18 Heterosexual Khadra ey Seybold 19:21:11 (finding) - External Alcohol intake 2022-11-03 2022-11-03 Ex-drinker Sandhya Eliazar valdes 00:00:00 00:00:00 (finding) - External Tobacco use and 2022-10-10 2022-10-10 Smokeless tobacco Ke lsey Seybold exposure 00:00:00 00:00:00 non-user - External History of Social 2020-10-262020-10-26 Sandhya To function 00:00:00 00:00:00 - External Sex Ass[birth year] At [birth year] F Sandhya magdaleno 00:00:00 00:00:00 - External Smoking Status Start Date Stop Date Source Never smoked tobacco Sandhya Matthews old - External Medications Ordered Filled Start Stop Current Ordering Indication Dosage Frequency Signature Comments Components Source Medication Medication Date Date Medication? Clinician (SIG) Name Name Scopolamine Yes [id number] 1{patch Place 1 Sandhya (TRANSDERM- 11-03 } patch onto Se magdaleno SCOP) 1 00:00: the skin - MG/3DAYS 00 every 72 Externa transdermal hours as l PATCH 72 HR needed Methylpredn 2022- No [id number] 40mg Sandhya isolone 06-20 9102 Seybold Acetate 21:15: 22:27 - (Depo-Medro 00 :00 Externa l) 40 mg/ml l - Physician Administere d (J1030) Methylpredn 2022- No [id number] 40mg 40 mg, Sandhya isolone 06-20 9102 Physician Seybol d Acetate 21:15: 22:27 Administer - (Depo-Medro 00 :00 ed, ONCE, Ext rai l) 40 mg/ml 1 dose, On l - Physician Mon Administere 06/20/22 at d (J1030) 1515 Estradiol Yes [id number] 1mg Take 1 Sandhya MG oral 6-09 tablet (1 Seybold Tablet 00:00: mg total) - 00 by mouth Externa daily l Estradiol Yes [id number] 1mg Take 1 Sandhya MG oral 6-09 tablet (1 Seybold Tablet 00:00: mg total) - 00 by mouth Externa daily l Estradiol Yes [id number] 1mg Take 1 Sandhya MG oral 6-09 tablet (1 Seybold Tablet 00:00: mg total) - 00 by mouth Externa daily l Trazodone Yes [id number] 50mg Take 1 K elsey HCl 50 MG 6-09 tablet (50 Seyb old oral Tablet 00:00: mg total) - 00 by mouth Externa nightly l Estradiol Yes [id number] 1mg Take 1 Sandhya MG oral 6-09 tablet (1 Seybold Tablet 00:00: mg total) - 00 by mouth Externa daily l Estradiol Yes [id number] 1mg Take 1 Sandhya MG oral 6-09 tablet (1 Seybold Tablet 00:00: mg total) - 00 by mouth Externa daily l Trazodone 0 2022- No [id number] 50mg Take 1 Sandhya HCl 50 MG [...] night as per patient. Amitriptyli 2020-06 Yes [id number] 25mg TAKE 1 K elsey ne HCl 25 0-07 TABLET (25 Seyb old MG oral 00:00: MG TOTAL) Tablet 00 BY MOUTH NIGHTLY Amitriptyli 2020-06 Yes [id number] 25mg TAKE 1 K elsey ne HCl 25 0-07 TABLET (25 Seyb old MG oral 00:00: MG TOTAL) Tablet 00 BY MOUTH NIGHTLY Estradiol Yes [id number] 1mg Take 1 Sandhya MG oral 6-16 tablet (1 Seybold Tablet 00:00: mg total) 00 by mouth daily Estradiol 1 Yes [id number] 1mg Take 1 Sandhya MG oral 6-16 tablet (1 Seybold Tablet 00:00: mg total) 00 by mouth daily Acetaminoph Yes [id number] 2 tablets Sandhya en 650 MG 5-27 every 8 Seybold oral Tab CR 00:00: hours as - 00 needed for Externa pain l Acetaminoph 0 Yes [id number] 2 tablets Sandhya en 650 MG 5-27 every 8 Seybold oral Tab CR 00:00: hours as - 00 needed for Externa pain l Acetaminoph 2021-0 Yes [id number] 2 tablets Sandhya en 650 MG 5-27 every 8 Seybold oral Tab CR 00:00: hours as 00 needed for pain Acetaminoph 2020-0 Yes [id number] 2 tablets Sandhya en 650 MG 5-27 every 8 Seybold oral Tab CR 00:00: hours as 00 needed for pain Acetaminoph 2020-0 Yes [id number] 2 tablets Sandhya en 650 MG 5-27 every 8 Seybold oral Tab CR 00:00: hours as - 00 needed for Externa pain l Acetaminoph 2020-0 Yes [id number] 2 tablets Sandhya en 650 MG 5-27 every 8 Seybold oral Tab CR 00:00: hours as - 00 needed for Externa pain l Acetaminoph 2020-0 Yes [id number] 2 tablets Sandhya en 650 MG 5-27 every 8 Seybold oral Tab CR 00:00: hours as - 00 needed for Externa pain l Vital Signs Vital Name Observation Time Observation Value Comments Source Systolic blood 2022-11-03 18:29:00 126 mm[Hg] Sandhya Seybold - pressure External Diastolic blood 2022-11-03 18:29:00 60 mm[Hg] Salvadorse y Seybold - pressure External Heart rate 2022-11-03 18:29:00 54 /min Sandhya Arnulfo eybold - External Body temperature 2022-11-03 18:29:00 36.56 Bridget Khadra ey Seybold - External Respiratory rate 2022-11-03 18:29:00 19 /min Khadra ey Seybold - External Body height 2022-11-03 18:29:00 162.6 cm Sandhya S eybold - External Body weight 2022-11-03 18:29:00 68.04 kg Sandhya Arredondo eybold - External BMI 2022-11-03 18:29:00 25.75 kg/m2 Sandhya S eybold - External Oxygen saturation in 2022-11-03 18:29:00 97 /min Sandhya To - Arterial blood by External Pulse oximetry Body weight 2022-06-20 20:45:00 70.761 kg Sandhya Arredondo eybold - External BMI 2022-06-20 20:45:00 26.78 kg/m2 Sandhya Arredondo eybold - External Body height 2022-06-20 20:45:00 162.6 cm Sandhya S eybold - External Systolic blood [...] saturation in 2022-06-14 22:08:00 99 /min Sandhya Matthewsold - Arterial blood by External Pulse oximetry Systolic blood 2022-05-16 22:11:00 124 mm[Hg] Sandhya Seybold - pressure External Diastolic blood 2022-05-16 22:11:00 60 mm[Hg] Salvaodrse y Seybold - pressure External Heart rate [...] Body temperature 2021-09-27 20:51:00 36.56 Bridget Khadra camp Seybomar Respiratory rate 2021-09-27 20:51:00 14 /min Khadra To Body height 2021-09-27 20:51:00 162.6 cm Sandhya linda Body weight 2021-09-27 20:51:00 68.402 kg Sandhya linda BMI 2021-09-27 20:51:00 25.88 kg/m2 Sandhya linda Oxygen saturation in 2021-09-27 20:51:00 99 /min Sandhya To Arterial blood by Pulse oximetry Procedures This patient has no known procedures. Encounters Start End Encounter Admission Attending Care Care Encounter Source Date/Time Date/Time Type Type Clinicians Facility Department ID 2022-12-14 2022-12-14 Outpatient ROSA ELENA RAZO [id number] Sandhya 15:00:00 15:00:00 Seybol d 2022-11-09 2022-11-09 Outpatient SANDHYA WALKER [id number] Sandhya 00:00:00 00:00:00 DAISY Seybol d 2022-11-04 2022-11-04 Outpatient SANDHYA ORLANDO [id number] Sandhya 00:00:00 00:00:00 ROSHNI Seybol d 2022-11-03 2022-11-03 Outpatient LAB90 SANDHYA LUNDBERG [id number] Sandhya 14:15:00 14:15:00 Seybol d 2022-11-03 2022-11-03 Outpatient SANDHYA WALKER [id number] Sandhya 13:30:00 13:30:00 DAISY Seybol d 2022-10-27 2022-10-27 Outpatient OUSANDHYA [id number] Sandhya 08:30:00 08:30:00 ANDREW Seyb old 2022-10-24 2022-10-24 Outpatient TRED76 SANDHYA LUNDBERG [id number] Sandhya 16:00:00 16:00:00 Seybol d 2022-10-12 2022-10-12 Outpatient SANDHYA LUNDBERG [id number] Sandhya 16:15:00 16:15:00 Seybol d 2022-10-10 2022-10-10 Outpatient TRED76 SANDHYA LUNDBERG [id number] Sandhya 16:15:00 16:15:00 Seybol d 2022-10-10 2022-10-10 Outpatient MAYCOL SANDHYA LUNDBERG [id number] Sandhya 14:00:00 14:00:00 FISAYOMI Seybo ld 2022-07-21 2022-07-21 Outpatient DANNI ROSA ELENA LUNDBERG [id number] Sandhya 15:15:00 15:15:00 Seybol d 2022-06-20 2022-06-20 Outpatient SANDHYA BLUNT [id number] Sandhya 14:30:00 14:30:00 KARIN Seybol d 2022-06-20 2022-06-20 Outpatient SANDHYA LUNDBERG [id number] Sandhya 14:25:00 14:25:00 Seybol d 2022-06-20 2022-06-20 Outpatient SANDHYA BLUNT [id number] Sandhya 00:00:00 00:00:00 KARIN Seybol d 2022-06-17 2022-06-17 Outpatient DANNI ROSA ELENA SANDHYA LUNDBERG [id number] Sandhya 13:15:00 13:15:00 Seybol d 2022-06-14 2022-06-14 Outpatient LAB90 SANDHYA LUNDBERG [id number] Sandhya 16:35:00 16:35:00 Seybol d 2022-06-14 2022-06-14 Outpatient SANDHYA ORLANDO [id number] Sandhya 15:45:00 15:45:00 ROSHNI Seybol d 2022-05-16 2022-05-16 Outpatient PRESANDHYA CASTANEDA [id number] Sandhya 15:45:00 15:45:00 AYDIN Seybol d 2022-01-05 2022-01-05 Outpatient LAB90 SANDHYA LUNDBERG [id number] Sandhya 09:50:00 09:50:00 Seybol d 2022-01-05 2022-01-05 Outpatient SANDHYA ORLANDO [id number] Sandhya 00:00:00 00:00:00 ROSHNI Seybol d 2021-11-11 2021-11-11 Office Diego Orlando [id number] Sandhya 15:30:00 16:00:00 Visit Roshni Rebolledo [id number] Se ybomar Somogyi [id number] 2021-10-06 2021-10-06 Outpatient SANDHYA ORLANDO [id number] Sandhya 00:00:00 00:00:00 ROSHNI Seybol d 2021-09-27 2021-09-27 Office Diego Orlando [id number] Sandhya 15:30:00 16:00:00 Visit Roshni Rebolledo [id number] Se ybomar Somogyi [id number] 2021-04-14 2021-04-14 Outpatient BREANNE MOE [id number] Sandhya 16:25:00 16:25:00 Seybol d 2021-04-14 2021-04-14 Office JYOTI Godoy [id number] Sandhya 15:46:32 16:01:32 Visit [facility] [id number] alexei Treviño [id number] 2021-01-26 2021-01-26 Outpatient SANDHYA ROSALES [id number] Sandhya 08:30:00 08:30:00 MUHAMMED Seybo ld 2021-01-13 2021-01-13 Outpatient BREANNE MOE [id number] Sandhya 17:05:00 17:05:00 Seybol d 2021-01-13 2021-01-13 Outpatient SANDHYA GODOY [id number] Sandhya 15:45:00 15:45:00 MORGAN Perryybo ld 2020-12-23 2020-12-23 Outpatient ABHIBREANNE DUDLEY [id number] Sandhya 12:00:00 12:00:00 Seybol d 2020-12-232020-12-23 Outpatient LAB39 SANDHYA LUNDBERG [id number] Sandhya 09:50:00 09:50:00 Seybol d 2020-12-23 2020-12-23 Outpatient SANDHYA GODOY [id number] Sandhya 08:45:00 08:45:00 MORGAN Seybo ld 2020-12-22 2020-12-22 Outpatient SANDHYA ROSALES [id number] Sandhya 00:00:00 00:00:00 MUHAMMED Seybo ld 2020-12-17 2020-12-17 Outpatient SANDHYA ROSALES [id number] Sandhya 11:00:00 11:00:00 MUHAMMED Seybo ld 2020-12-15 2020-12-15 Outpatient SANDHYA VITALE [id number] Sandhya 00:00:00 00:00:00 KIM Seybol d 2020-12-15 2020-12-15 Outpatient SANDHYA ORLANDO [id number] Sandhya 00:00:00 00:00:00 ROSHNI Seybol d Results This patient has no known results.
--- NOTE | 2022-11-18 03:09 | ER ---
Nurse's Notes [facility] Name: Joanne Morales Age: 57 yrs Sex: Female : 1965 Arrival Date: 11/18/2022 Time: 01:17 Bed 16 Private MD: Diagnosis: Dislodgment of postoperative drain, postoperative incision check, postoperative dressing change Presentation: 11/18 01:35 Chief complaint: Patient states: had right hemisphere thyroidectomy yesterday am kl changing bandage and drain dislodged minimal bleeding noted. Coronavirus screen: Vaccine status: Patient reports being unvaccinated. Ebola Screen: Patient negative for fever greater than or equal to 101.5 degrees Fahrenheit, and additional compatible Ebola Virus Disease symptoms. Initial Sepsis Screen: Does the patient meet any 2 criteria? No. Patient's initial sepsis screen is negative. Does the patient have a suspected source of infection? No. Patient's initial sepsis screen is negative. Risk Assessment: Do you want to hurt yourself or someone else? Patient reports no desire to harm self or others. 01:35 Method Of Arrival: Ambulatory 01:35 Acuity: DEION 4 kl Triage Assessment: 01:39 General: Appears comfortable, Behavior is calm, cooperative. Pain: Complains of pain in kl neck. Historical: - Allergies: 01:38 Sulfa (Sulfonamide Antibiotics); kl - Home Meds: 01:38 estradiol 1 mg Oral tablet daily [Active]; kl - PMHx: 01:38 Endometriosis of vagina; thyroid tumor; - PSHx: 01:38 Total abdominal hysterectomy; partial thyroidectomy; - Immunization history:: Adult Immunizations up to date. - Social history:: Smoking status: Patient denies any tobacco usage or history of. - Family history:: not pertinent. Screenin:21 [facility] ED Fall Risk Assessment (Adult) History of falling in the last 3 months, jb4 including since admission No falls in past 3 months (0 pts) Confusion or Disorientation No (0 pts) Score/Fall Risk Level 0 - 2 = Low Risk Oriented to surroundings, Maintained a safe environment. Abuse screen: Denies threats or abuse. Nutritional screening: No deficits noted. Tuberculosis screening: No symptoms or risk factors identified. Assessment: 01:45 General: Appears in no apparent distress. comfortable, Behavior is calm, cooperative, jb4 appropriate for age. Pain: Denies pain. Neuro: Level of Consciousness is awake, alert, obeys commands, Oriented to person, place, time, situation. Cardiovascular: Patient's skin is warm and dry. Respiratory: Airway is patent Respiratory effort is even, unlabored, Respiratory pattern is regular, symmetrical. GI: No signs and/or symptoms were reported involving the gastrointestinal system. : No signs and/or symptoms were reported regarding the genitourinary system. EENT: No signs and/or symptoms were reported regarding the EENT system. Derm: Skin is intact, Skin is pink, warm \T\ dry. Musculoskeletal: Circulation, motion, and sensation intact. Range of motion: intact in all extremities. 03:21 Reassessment: Patient appears in no apparent distress at this time. Patient and/or jb4 family updated on plan of care and expected duration. Pain level reassessed. Patient is alert, oriented x 3, equal unlabored respirations, skin warm/dry/pink. Vital Signs: 01:35 BP 125 / 90; Pulse 94; Resp 20; Temp 98.3(TE); Pulse Ox 99% on R/A; Weight 66.68 kg kl (R); Height 5 ft. 4 in. ; Pain 2/10; 01:35 Body Mass Index 25.23 (66.68 kg, 162.56 cm) kl 01:35 Pain Scale: Adult kl ED Course: 01:21 Patient arrived in ED. jj6 01:38 Triage completed. kl 01:41 Jadiel Alvarenga, RN is Primary Nurse. jb4 02:04 Ashutosh Hernandez MD is Attending Physician. sp4 03:07 Kala Roberson MD is Referral Physician. sp4 03:21 Patient has correct armband on for positive identification. Bed in low position. Call jb4 light in reach. Side rails up X 1. 03:21 No provider procedures requiring assistance completed. Patient did not have IV access jb4 during this emergency room visit. Administered Medications: No medications were administered Outcome: 03:08 Discharge ordered by . sp4 03:21 Discharged to home ambulatory, with family. jb4 03:21 Condition: stable 03:21 Discharge instructions given to patient, Instructed on discharge instructions, follow up and referral plans. Demonstrated understanding of instructions, follow-up care. 03:23 Patient left the ED. jb4 Signatures: Amaris Melgoza RN RN kl Bryson, James, RN RN jb4 Frannie Corea jj6 Ashutosh Hernandez MD MD sp4
--- NOTE | 2022-11-18 03:09 | EDPHYS ---
Physician Documentation [facility] Name: Joanne Morales Age: 57 yrs Sex: Female : 1965 Arrival Date: 11/18/2022 Time: 01:17 Bed 16 Private MD: ED Physician Ashutosh Hernandez HPI: 11/18 02:05 This 57 yrs old Female presents to ER via Ambulatory with complaints of Post sp4 Surgical Bleeding, POST SURGICAL PROBLEM. 03:03 On 11/17/2022 patient had a partial thyroidectomy by Dr. Roberson . Patient had surgical sp4 drain placed into the incision after partial thyroidectomy and the drain fell out of the incision just prior to arrival.. Patient experienced mild bleeding which has stopped by now. Incision otherwise has no expanding hematoma. . Patient denied difficulty breathing or voice changes. Historical: - Allergies: 01:38 Sulfa (Sulfonamide Antibiotics); kl - Home Meds: 01:38 estradiol 1 mg Oral tablet daily [Active]; kl - PMHx: 01:38 Endometriosis of vagina; thyroid tumor; kl - PSHx: 01:38 Total abdominal hysterectomy; partial thyroidectomy; kl - Immunization history:: Adult Immunizations up to date. - Social history:: Smoking status: Patient denies any tobacco usage or history of. - Family history:: not pertinent. ROS: 03:03 Constitutional: Negative for fever, chills, and weight loss, ENT: Negative for injury, sp4 pain, and discharge, positive postoperative neck incision with nonbleeding postoperative incision Neck: Negative for injury, pain, and swelling, positive postoperative thyroidectomy neck incision 03:03 All other systems are negative. Exam: 03:03 Constitutional: This is a well developed, well nourished patient who is awake, alert, sp4 and in no acute distress. Head/Face: Normocephalic, atraumatic. Eyes: Pupils equal round and reactive to light, extra-ocular motions intact. Lids and lashes normal. Conjunctiva and sclera are not injected. Cornea within normal limits. Periorbital areas with no swelling, redness, or edema. ENT: Nares patent. No nasal discharge, no septal abnormalities noted. Tympanic membranes are normal and external auditory canals are clear. Oropharynx with no redness, swelling, or masses, exudates, or evidence of obstruction, uvula midline. Mucous membranes moist. Neck: Trachea midline, there postoperative neck incision at the site of the thyroid, Steri-Strips present, incision is clean and intact, small opening where the drain used to be he is oozing a small amount of tissue fluid serosanguineous in nature. No active bleeding, no sign of expanding hematoma. Chest/axilla: Normal chest wall appearance and motion. Nontender with no deformity. No lesions are appreciated. Cardiovascular: Regular rate and rhythm with a normal S1 and S2. No gallops, murmurs, or rubs. Normal PMI, no JVD. No pulse deficits. Respiratory: Lungs have equal breath sounds bilaterally, clear to auscultation and percussion. No rales, rhonchi or wheezes noted. No increased work of breathing, no retractions or nasal flaring. Abdomen/GI: Soft, non-tender, with normal bowel sounds. No distension or tympany. No guarding or rebound. No evidence of tenderness throughout. Back: No spinal tenderness. No costovertebral tenderness. Female : Normal external genitalia. Skin: Warm, dry with normal turgor. Normal color with no rashes, no lesions, and no evidence of cellulitis. MS/ Extremity: Pulses equal, no cyanosis. Neurovascular intact. Full, normal range of motion. Neuro: Awake and alert, GCS 15, oriented to person, place, time, and situation. Cranial nerves II-XII grossly intact. Motor strength 5/5 in all extremities. Sensory grossly intact. Psych: Awake, alert, with orientation to person, place and time. Behavior, mood, and affect are within normal limits Vital Signs: 01:35 BP 125 / 90; Pulse 94; Resp 20; Temp 98.3(TE); Pulse Ox 99% on R/A; Weight 66.68 kg kl (R); Height 5 ft. 4 in. ; Pain 2/10; 01:35 Body Mass Index 25.23 (66.68 kg, 162.56 cm) kl 01:35 Pain Scale: Adult kl MDM: 02:21 Patient medically screened. sp4 03:03 Differential Diagnosis Postoperative complications, postoperative incision, dislodgment sp4 of postoperative drain. Data reviewed: vital signs, nurses notes, old medical records. Consideration of Admission/Observation Escalation of care including admission/observation considered. ED course: Repeat dressing change there is no sign of expanding hematoma, no active bleeding, small amount of tissue fluid oozing which is normal. Patient advised to keep dressing applied in the emergency department and see her ENT surgeon in the morning in the office for dressing change. Dr. Roberson was contacted but has not called back, Dr. Roberson was sent a message requesting she calls patient to schedule her in the office dressing change this morning. Administered Medications: No medications were administered Disposition Summary: 11/18/22 03:08 Discharge Ordered Location: Home sp4 Problem: new sp4 Symptoms: are unchanged sp4 Condition: Stable sp4 Diagnosis - Dislodgment of postoperative drain, postoperative incision check, postoperative sp4 dressing change Followup: sp4 - With: Kala Roberson MD - When: Today - Reason: Recheck today's complaints Discharge Instructions: - Discharge Summary Sheet sp4 - Incision Care, Adult, [id number] sp4 Signatures: Amaris Melgoza RN RN kl Potepalov, Sergey, MD MD sp4
[2022-11-18 03:50] VITALS: BP 125/90; TEMP 98.3; O2SAT 99
== END 2022-11-18 03:23 | disposition home or self-care (01) ==
LOC: ER 01:17
DX: T85.628A Displacement of other specified internal prosthetic devices, implants and grafts, initial encounter (principal); Z48.01 Encounter for change or removal of surgical wound dressing; E89.0 Postprocedural hypothyroidism; Z88.2 Allergy status to sulfonamides
CPT/HCPCS: 99282

== ENCOUNTER 2023-09-10 10:51 | Emergency (ER) | payer OTHER, BC ==
--- OUTSIDE RECORDS SUMMARY | 2023-09-10 10:53 | XMS REPORT | Continuity of Care Document ---
Author Name Unknown Address [address] [facility] [address] [place] [address] [facility] Address [address] [facility] [address] [place] [address] Care Team Providers Care Real Time Trader Name Role Phone Kane LINDSAY, Roshni Rodriguez Primary Care Physician ROSA ELENA RAZO Attending Clinician Unava ilable DAISY WALKER Attending Clinician Unavailable BRENNEN HIDALGO Attending Clinician Carolyn vailable GC_GCBZW_Whit_S Attending Clinician Unavaila ROHAN Marie Attending Clinician Unavailab le LAB90 Attending Clinician Unavailable MD CONCETTA Attending Clinician Unavailab le LAB39 Attending Clinician Unavailable ROSHNI ORLANDO Attending Clinician Unava ilANDREW Lay Attending Clinician Unavailable TRED76 Attending Clinician Unavailable DARRIUS SEVERINO Attending Clinician Unavaila KARIN Lees Attending Clinician Unavailable AYDIN HERNANDEZ Attending Clinician Unavailable Roshni Orlando MD Attending Clinician + -[phone] BREANNE MOE Attending Clinician Unavailable Morgan Godoy MD Attending Clinician + YOBANY ROSALES Attending Clinician UnavailMORGAN Wilson Attending Clinician Unav ailKIM Hensley Attending Clinician Unavailabl e [email or web address]_Kadiyala_S Admitting Clinician Livia ramirez Payers Payer Name Policy Type Policy Number Effective Date Expirati on Date Source [place] [address] [employer]EF[employer] 2 [id number] 2022 00:00:00 BCBS 2 [id number] 2022 00:00:00 Problems Condition Name Condition Details Condition Category Status Onset Date Resolution Date Last Treatment Date Treating Clinician Comments Source Dermatitis Dermatitis Disease Active 2021-06 00:00: 00 Sandhya Seybold - Externa l Pain of right hand Pain of right hand Disease Active 2021-06 00:00: 00 Sandhya Seybold - Externa l Ganglion cyst of flexor tendon sheath of finger of right hand Ganglion cyst of flexor tendon sheath of finger of right hand Disease Active 2021-06 00:00: 00 Sandhya Seybold - Externa l Elevated cholestero l - Not Controlled Elevated cholestero l - Not Controlled Disease Active 11-11 00:00: 00 Sandhya Seybold - Externa l Postmenopa usal - Controlled Postmenopa usal - Controlled Disease Active 11-11 00:00: 00 Sandhya Seybold - Externa l Racing heart beat - Not Controlled Racing heart beat - Not Controlled Disease Active 11-18 00:00: 00 Sandhya Seybold - Externa l Shingles rash Shingles rash Disease Active 11-18 00:00: 00 Sandhya Seybold - Externa l Insomnia Insomnia Disease Active 11-18 00:00: 00 Sandhya Seybold - Externa l Allergies, Adverse Reactions, Alerts Allergy Name Allergy Type Status Severity Reaction(s) Onset Date Inactive Date Treating Clinician Comments Source Sulfa Drugs Propensi ty to adverse reaction s Active 11-10 00:00: 00 Sandhya Seybold Sulfa Drugs Propensi ty to adverse reaction s Active 11-10 00:00: 00 Sandhya Seybold - Externa l Social History Social Habit Start Date Stop Date Quantity Comments Source Gender identity 2020-11-18 19:21:11 Identifies as female gender (finding) Sandhya Perryybold - External Sexual orientation 2020-11-18 19:21:11 Heterosexual (finding) Sandhya To - External Alcohol intake 2023-06-14 00:00:00 2023-06-14 00:00:00 Ex-drinker (finding) Sandhya To - External History of Social function 2023-02-07 00:00:00 2023-02-07 00:00:00 Sandhya To - External Tobacco use and exposure 2022-10-10 00:00:00 2022-10-10 00:00:00 Smokeless tobacco non-user Sandhya To - External Sex Assigned At 1965 00:00:00 1965 00[birth year] F Sandhya To - External Smoking Status Start Date Stop Date Source Never smoked tobacco Sandhya To - External Medications Ordered Medication Name Filled Medication Name Start Date Stop Date Current Medication? Ordering Clinician Indication Dosage Frequency Signature (SIG) Comments Components Source Metformin HCl 500 MG oral Tablet 02-07 00:00: 00 Yes [id number] 500mg Take 1 tablet (500 mg total) by mouth daily (with breakfast) . Sandhya maya Levothyroxi ne Sodium 112 MCG oral Tablet 02-07 00:00: 00 Yes [id number] 112ug Take 1 tablet (112 mcg total) by mouth daily. Sandhya maya Semaglutide -Weight Management (Wegovy) 0.25 MG/0.5ML subcutaneou s Solution Auto-inject or 02-07 00:00: 00 02-07 00:00 :00 No [id number] .25mg Inject 0.25 mg into the skin once a week. Sandhya maya Bupropion HCL XL 150 MG OR TB24 01-09 00:00: 00 Yes [id number] TAKE 1 TABLET(150 MG) BY MOUTH DAILY Sandhya maya Vitamin D, Ergocalcife rol, 1.25 MG (70031 UT) oral Capsule 01-07 00:00: 00 Yes [id number] Take 1 capsule (50,000 units total) by mouth once a week. Sandhya maya Vitamin D, Ergocalcife rol, 1.25 MG (76393 UT) oral Capsule 805 00:00: 00 Yes 1{capsu le} Take 1 capsule (50,000 units total) by mouth once a week. Sandhya maya Levothyroxi ne Sodium 112 MCG oral Tablet 12-23 00:00: 00 02-07 00:00 :00 No [id number] 112ug Take 1 tablet (112 mcg total) by mouth daily Sandhya maya Cholecalcif ludin (Vitamin D3) 1.25 MG (39875 UT) oral Capsule - 00:00: 00 Yes [id number] 1{capsu le} Take 1 capsule by mouth once a week Sandhya maya Bupropion HCL XL 150 MG OR TB24 12-12 00:00: 00 Yes [id number] 150mg Take 1 tablet (150 mg total) by mouth daily Sandhya maya Estradiol 1 MG oral Tablet 12-12 00:00: 00 Yes [id number] 1mg Take 1 tablet (1 mg total) by mouth daily Sandhya maya methylPREDN ISolone 4 MG oral Tablet Therapy Pack 12-12 00:00: 00 02-07 00:00 :00 No [id number] 1{madhuri} Take 1 madhuri by mouth See Admin Instructio ns Use as directed Sandhya maya HYDROcodone -Acetaminop hen (NORCO) 5-325 MG oral Tablet 15 00:00: 00 02-07 00:00 :00 No 1{tbl} Q.25D Take 1 tablet by mouth every 6 hours as needed FOR PAIN Sandhya maya Vitamin D, Ergocalcife rol, 1.25 MG (84217 UT) oral Capsule 11-09 00:00: 00 Yes [id number] 17460T Take 1 capsule (50,000 units total) by mouth once a week Sandhya maya Estradiol 1 MG oral Tablet 11-04 00:00: 00 12-12 00:00 :00 No [id number] 1mg Take 1 tablet (1 mg total) by mouth daily Sandhya maya Scopolamine (TRANSDERM- SCOP) 1 MG/3DAYS transdermal PATCH 72 HR 11-03 00:00: 00 Yes [id number] 1{patch } Place 1 patch onto the skin every 72 hours as needed Sandhya maya Methylpredn isolone Acetate (Depo-Medro l) 40 mg/ml - Physician Administere d (J1030) 06-20 21:15: 00 06-20 22:27 :00 No [id number] 9102 40mg Sandhya maya Estradiol 1 MG oral Tablet 11-11 00:00: 00 Yes [id number] 1mg Take 1 tablet (1 mg total) by mouth daily Sandhya maya Trazodone HCl 50 MG oral Tablet 11-11 00:00: 00 06-14 00:00 :00 No [id number] 50mg Take 1 tablet (50 mg total) by mouth nightly Sandhya maya AMITRIPTYLI NE HCL IM 4 15:52: 07 Yes 25mg Take 25 mg by mouth Takes at night as per patient. Sandhya To AMITRIPTYLI NE HCL IM 2020-06 15:50: 53 Yes 25mg Take 25 mg by mouth Takes at night as per patient. Sandhya To Amitriptyli ne HCl 25 MG oral Tablet 2020-06 00:00: 00 Yes [id number] 25mg TAKE 1 TABLET (25 MG TOTAL) BY MOUTH NIGHTLY Sandhya To Estradiol 1 MG oral Tablet 11-18 00:00: 00 Yes [id number] 1mg Take 1 tablet (1 mg total) by mouth daily Sandhya To Acetaminoph en 650 MG oral Tab CR 10-29 00:00: 00 Yes [id number] 2 tablets every 8 hours as needed for pain Sandhya maya Vital Signs Vital Name Observation Time Observation Value Comments S ource Systolic blood pressure 2023-02-07 20:49:00 126 mm[Hg] Sandhya Seybo ld - External Diastolic blood pressure 2023-02-07 20:49:00 62 mm[Hg] Sandhya Seybo ld - External Heart rate 2023-02-07 20:49:00 68 /min Kelse y Seybold - External Body temperature 2023-02-07 20:49:00 36.39 Bridget Sandhya Seybold - External Respiratory rate 2023-02-07 20:49:00 14 /min Sandhya Seybold - External Body height 2023-02-07 20:49:00 162.6 cm Khadra ey Seybold - External Body weight 2023-02-07 20:49:00 69.854 kg Khadra ey Seybold - External BMI 2023-02-07 20:49:00 26.43 kg/m2 Khadra ey Seybold - External Systolic blood pressure 2022-12-13 14:05:00 178 mm[Hg] Sandhya Seybo ld - External Diastolic blood pressure 2022-12-13 14:05:00 74 mm[Hg] Sandhya Seybo ld - External Heart rate 2022-12-13 14:05:00 61 /min Kelse y Seybold - External Body temperature 2022-12-13 14:05:00 36.44 Bridget Sandhya Seybold - External Respiratory rate 2022-12-13 14:05:00 18 /min Sandhya Seybold - External Body height 2022-12-13 14:05:00 162.6 cm Khadra ey Seybold - External Body weight 2022-12-13 14:05:00 69.4 kg Khadra ey Seybold - External BMI 2022-12-13 14:05:00 26.26 kg/m2 Khadra ey Seybold - External Systolic blood pressure 2022-12-12 15:50:00 132 mm[Hg] Sandhya Seybo ld - External Diastolic blood pressure 2022-12-12 15:50:00 80 mm[Hg] Sandhya Seybo ld - External Heart rate 2022-12-12 15:50:00 64 /min Kelse y Seybold - External Body temperature 2022-12-12 15:50:00 35.33 Bridget Sandhya Seybold - External Respiratory rate 2022-12-12 15:50:00 20 /min Sandhya Seybold - External Body height 2022-12-12 15:50:00 162.6 cm Khadra ey Seybold - External Body weight 2022-12-12 15:50:00 70.308 kg Khadra ey Seybold - External BMI 2022-12-12 15:50:00 26.61 kg/m2 Khadra ey Seybold - External Oxygen saturation in Arterial blood by Pulse oximetry 2022-12-12 15:50:00 99 /min Sandhya Seybo ld - External Systolic blood pressure 2022-11-03 18:29:00 126 mm[Hg] Sandhya Seybo ld - External Diastolic blood pressure 2022-11-03 18:29:00 60 mm[Hg] Sandhya Seybo ld - External Heart rate 2022-11-03 18:29:00 54 /min Kelse y Seybold - External Body temperature 2022-11-03 18:29:00 36.56 Bridget Sandhya Seybold - External Respiratory rate 2022-11-03 18:29:00 19 /min Sandhya Seybold - External Body height 2022-11-03 18:29:00 162.6 cm Khadra ey Seybold - External Body weight 2022-11-03 18:29:00 68.04 kg Khadra ey Seybold - External BMI 2022-11-03 18:29:00 25.75 kg/m2 Khadra ey Seybold - External Oxygen saturation in Arterial blood by Pulse oximetry 2022-11-03 18:29:00 97 /min Sandhya Seybo ld - External Body height 2022-06-20 20:45:00 162.6 cm Khadra ey Seybold - External Body weight 2022-06-20 20:45:00 70.761 kg Khadra ey Seybold - External BMI 2022-06-20 20:45:00 26.78 kg/m2 Khadra ey Seybold - External Systolic blood pressure 2022-06-14 22:08:00 129 mm[Hg] Sandhya Seybo ld - External Diastolic blood pressure 2022-06-14 22:08:00 62 mm[Hg] Sandhya Seybo ld - External Heart rate 2022-06-14 22:08:00 67 /min Kelse y Seybold - External Body temperature 2022-06-14 22:08:00 36.11 Bridget Sandhya Seybold - External Respiratory rate 2022-06-14 22:08:00 15 /min Sandhya Seybold - External Body height 2022-06-14 22:08:00 162.6 cm Khadra ey Seybold - External Body weight 2022-06-14 22:08:00 71.124 kg Khadra ey Seybold - External BMI 2022-06-14 22:08:00 26.91 kg/m2 Khadra ey Seybold - External Oxygen saturation in Arterial blood by Pulse oximetry 2022-06-14 22:08:00 99 /min Sandhya Seybo ld - External Systolic blood pressure 2022-05-16 22:11:00 124 mm[Hg] Sandhya Seybo ld - External Diastolic blood pressure 2022-05-16 22:11:00 60 mm[Hg] Sandhya Seybo ld - External Heart rate 2022-05-16 22:11:00 65 /min Kelse y Seybold - External Body temperature 2022-05-16 22:11:00 35.67 Bridget Sandhya Seybold - External Respiratory rate 2022-05-16 22:11:00 14 /min Sandhya Seybold - External Body height 2022-05-16 22:11:00 162.6 cm Khadra ey Seybold - External Body weight 2022-05-16 22:11:00 71.215 kg Khadra ey Seybold - External BMI 2022-05-16 22:11:00 26.95 kg/m2 Khadra ey Seybold - External Systolic blood pressure 2021-09-27 20:51:00 125 mm[Hg] Sandhya Seybo ld Diastolic blood pressure 2021-09-27 20:51:00 69 mm[Hg] Sandhya Seybo ld Heart rate 2021-09-27 20:51:00 66 /min Kelse y Seybold Body temperature 2021-09-27 20:51:00 36.56 Bridget Sandhya Seybold Respiratory rate 2021-09-27 20:51:00 14 /min Sandhya Seybold Body height 2021-09-27 20:51:00 162.6 cm Khadra ey Seybold Body weight 2021-09-27 20:51:00 68.402 kg Khadra ey Seybold BMI 2021-09-27 20:51:00 25.88 kg/m2 Khadra To Oxygen saturation in Arterial blood by Pulse oximetry 2021-09-27 20:51:00 99 /min Sandhya jerez Encounters Start Date/Time End Date/Time Encounter Type Admission Type Attending Rust Care Department Encounter ID Source 2023-12-14 10:45:00 2023-12-14 10:45:00 Outpatient ROSA ELENA RAZO [id number] [facility] 2023-06-21 00:00:00 2023-06-21 00:00:00 Outpatient DAISY WALKER [id number] [facility] 2023-06-14 15:45:00 2023-06-14 15:45:00 Outpatient ROSA ELENA RAZO [id number] [facility] 2023-04-11 11:00:00 2023-04-11 11:00:00 Outpatient BRENNEN HIDALGO [id number] [facility] 2023-04-04 00:00:00 2023-04-04 00:00:00 Outpatient GC_GCBZW_Ka diyala_S PRIV PRIV [id number] [facility] 2023-04-03 00:00:00 2023-04-03 00:00:00 Outpatient GC_GCBZW_Ka diyala_S PRIV PRIV [id number] [facility] 2023-03-20 15:45:00 2023-03-20 15:45:00 Outpatient SANDHAY LUNDBERG [id number] [facility] 2023-03-04 00:00:00 2023-03-04 00:00:00 Outpatient [facility] WALK[facility] [id number] [facility] 2023-02-09 16:00:00 2023-02-09 16:00:00 Outpatient ROHAN MORALES [id number] [facility] 2023-02-07 16:45:00 2023-02-07 16:45:00 Outpatient LAB90 SANDHYA LUNDBERG [id number] [facility] 2023-02-07 16:00:00 2023-02-07 16:00:00 Outpatient HUNDDAISY Maya SANDHYA LUNDBERG [id number] [facility] 2023-02-03 15:40:00 2023-02-03 15:40:00 Outpatient LAB90 SANDHYA LUNDBERG [id number] [facility] 2023-02-03 00:00:00 2023-02-03 00:00:00 Outpatient HUNDL, DAISY S[facility]HYA LUNDBERG [id number] [facility] 2023-02-02 00:00:00 2023-02-02 00:00:00 Outpatient HUNDL, DAISY LUNDBERG [id number] [facility] 2023-01-31 00:00:00 2023-01-31 00:00:00 Outpatient HUNDRoz DAISY LUNDBERG [id number] [facility] 2023-01-09 16:00:00 2023-01-09 16:00:00 Outpatient HUNDRoz, DAISY LUNDBERG [id number] [facility] 2023-01-08 00:00:00 2023-01-08 00:00:00 Outpatient HUNDRoz DAISY LUNDBERG [id number] [facility] 2023-01-06 00:00:00 2023-01-06 00:00:00 Outpatient BRENNEN HIDALGO [id number] [facility] 2023-01-06 00:00:00 2023-01-06 00:00:00 Outpatient BRENNEN HIDALGO [id number] [facility] 2022-12-26 00:00:00 2022-12-26 00:00:00 Outpatient MD SANDHYA HAYES [id number] [facility] 2022-12-23 00:00:00 2022-12-23 00:00:00 Outpatient BRENNEN HIDALGO [id number] [facility] 2022-12-22 00:00:00 2022-12-22 00:00:00 Outpatient DENISE DAISY LUNDBERG [id number] [facility] 2022-12-21 00:00:00 2022-12-21 00:00:00 Outpatient ROCKY BRENNEN SANDHYA LUNDBERG [id number] [facility] 2022-12-14 15:00:00 2022-12-14 15:00:00 Outpatient ROSA ELENA RAZO [facility]HYA [facility] [id number] [facility] 2022-12-14 00:00:00 2022-12-14 00:00:00 Outpatient DAISY WALKER [id number] [facility] 2022-12-13 10:00:00 2022-12-13 10:00:00 Outpatient LAB39 SANDHYA LUNDBERG [id number] [facility] 2022-12-13 08:45:00 2022-12-13 08:45:00 Outpatient BRENNEN HIDALGO [id number] [facility] 2022-12-13 00:00:00 2022-12-13 00:00:00 Outpatient DAISY WALKER [id number] [facility] 2022-12-12 11:45:00 2022-12-12 11:45:00 Outpatient LAB90 SANDHYA LUNDBERG [id number] [facility] 2022-12-12 10:30:00 2022-12-12 10:30:00 Outpatient DENISE, DAISY LUNDBERG [id number] [facility] 2022-12-12 00:00:00 2022-12-12 00:00:00 Outpatient DAISY WALKER [id number] [facility] 2022-11-09 00:00:00 2022-11-09 00:00:00 Outpatient DAISY WALKER [id number] [facility] 2022-11-04 00:00:00 2022-11-04 00:00:00 Outpatient ROSHNI ORLANDO [id number] [facility] 2022-11-03 14:15:00 2022-11-03 14:15:00 Outpatient LAB90 SANDHYA LUNDBERG [id number] [facility] 2022-11-03 13:30:00 2022-11-03 13:30:00 Outpatient DAISY WALKER [id number] [facility] 2022-10-27 08:30:00 2022-10-27 08:30:00 Outpatient ANDREW LUIS [facility]UN[facility] [id number] [facility] 2022-10-24 16:00:00 2022-10-24 16:00:00 Outpatient TRED76 SANDHYA LUNDBERG [id number] [facility] 2022-10-12 16:15:00 2022-10-12 16:15:00 Outpatient SANDHYA LUNDBERG [id number] [facility] 2022-10-10 16:15:00 2022-10-10 16:15:00 Outpatient TRED76 SANDHYA LUNDBERG [id number] [facility] 2022-10-10 14:00:00 2022-10-10 14:00:00 Outpatient TIERAPARIS CATRACHOMakayla LUNDBERG [id number] [facility] 2022-07-21 15:15:00 2022-07-21 15:15:00 Outpatient ROSA ELENA RAZO [id number] [facility] 2022-06-20 14:30:00 2022-06-20 14:30:00 Outpatient KARIN BLUNT [id number] [facility] 2022-06-20 14:25:00 2022-06-20 14:25:00 Outpatient SANDHYA LUNDBERG [id number] [facility] 2022-06-20 00:00:00 2022-06-20 00:00:00 Outpatient KARIN BLUNT [id number] [facility] 2022-06-17 13:15:00 2022-06-17 13:15:00 Outpatient ROSA ELENA RAZO [id number] [facility] 2022-06-14 16:35:00 2022-06-14 16:35:00 Outpatient LABPau LUNDBERG [id number] [facility] 2022-06-14 15:45:00 2022-06-14 15:45:00 Outpatient ROSHNI ORLANDO [id number] [facility] 2022-05-16 15:45:00 2022-05-16 15:45:00 Outpatient AYDIN HERNANDEZ [facility] [id number] [facility] 2022-01-05 09:50:00 2022-01-05 09:50:00 Outpatient LABPau SANDHYA LUNDBERG [id number] [facility] 2022-01-05 00:00:00 2022-01-05 00:00:00 Outpatient ROSHNI ORLANDO SANDHYA LUNDBERG [id number] [facility] 2021-11-11 15:30:00 2021-11-11 16:00:00 Office Visit Roshni [place] [id number] [facility] 2021-10-06 00:00:00 2021-10-06 00:00:00 Outpatient ROSHNI ORLANDO SANDHYA LUNDBERG [id number] [facility] 2021-09-27 15:30:00 2021-09-27 16:00:00 Office Visit Roshni [place] [id number] [facility] 2021-04-14 16:25:00 2021-04-14 16:25:00 Outpatient ABHIBREANNE [facility]HYA [facility]UN[facility] [id number] [facility] 2021-04-14 15:46:32 2021-04-14 16:01:32 [facility] [id number] [facility] 2021-01-26 08:30:00 2021-01-26 08:30:00 Outpatient YOBANY ROSALES [id number] [facility] 2021-01-13 17:05:00 2021-01-13 17:05:00 Outpatient BAHI BREANNE [facility] [id number] [facility] 2021-01-13 15:45:00 2021-01-13 15:45:00 Outpatient MORGAN GODOY [facility] [id number] [facility] 2020-12-23 12:00:00 2020-12-23 12:00:00 Outpatient BREANNE MOE [facility] [id number] [facility] 2020-12-23 09:50:00 2020-12-23 09:50:00 Outpatient LAB39 SANDHYA LUNDBERG [id number] [facility] 2020-12-23 08:45:00 2020-12-23 08:45:00 Outpatient MORGAN GODOY [facility] [id number] [facility] 2020-12-22 00:00:00 2020-12-22 00:00:00 Outpatient KMIDEANNEYOBANY Benavides [id number] [facility] 2020-12-17 11:00:00 2020-12-17 11:00:00 Outpatient YOBANY ROSALES [id number] [facility] 2020-12-15 00:00:00 2020-12-15 00:00:00 Outpatient KIM VITALE [facility] [id number] [facility] 2020-12-15 00:00:00 2020-12-15 00:00:00 Outpatient ROSHNI ORLANDO [id number] [facility] Notes Date/Time Note Provider Source 2023-06-14 16:06:00 vRHxOS+okb4abBdUnBs5 G5lk0neRah5qcx RkWUTCL7tp5NZjhxVDpbWW8siMY3Dc6000 -01-10T16:06:00 Chief ComplaintPatient presents withSkin CheckSkin Cancer ScreeningGiseanamika Ornelas [id number] BxmbED7586-74-46Z79:23:18Nurse [id number] .2.954851|[id number] for patient umlo62119-6Lpdny NoteLNNARRATIVEFormatted C-CDA narrative textAscension All Saints Hospital[address] [place], [place] [id number] [id number]:23:181.2.840.1143 50.1.72.3.15|1.2.840.916710.1.13.1 [id number] [facility] 2023-02-07 15:53:54 LAfozhoLrNhM8eqiAJO3 Z+2qwfF81fiZaE yGDu6CVJFj2ZfzRRToKZYI46373MsV6752 -09-05T15:53:54 Chief Complaint Patient presents with Follow-up Follow up on thyroid and go over blood [place] [id number] ZawtNP2847-41-81U69:54:20Nurse NoteTXT1.2.840.312788.1.13.131.2.7 .2.343131|[id number] for patient ybfh24313-1Fjink [id number] Hurst MA IIAscension All Saints Hospital[address] [place], [place] [id number] [id number]:54:201.2.840.1143 50.1.72.3.15|1.2.840.399870.1.13.1 [id number] Nay Leblanc MA, II [facility]"
--- NOTE | 2023-09-10 11:29 | RAD REPORT ---
EXAM DESCRIPTION: CT - Head Brain Wo Cont - 09/10/2023 11:21 am CLINICAL HISTORY: Dizziness;Syncope COMPARISON: No comparisons TECHNIQUE: All CT scans are performed using dose optimization technique as appropriate and may inclu de automated exposure control or mA/KV adjustment according to patient size. FINDINGS: No intracranial hemorrhage, hydrocephalus or extra-axial fluid collection.No areas of brai n edema or evidence of midline shift. Mucous retention cyst left maxillary sinus . The calvarium is intact. IMPRESSION: No acute intracranial abnormality.
[2023-09-10 12:01] LABS: Absolute Eosinophils 0.1 K/uL (0-0.5); Absolute Monocytes 0.5 K/uL (0.1-1.3); Absolute Neutrophil 5.7 K/uL (1.8-8.0); Basophils % 0.6 % (0-1.3); Eosinophils % 0.8 % (0-4.4); Hematocrit 38.7 % (36.0-45.0); Lymphocytes % 14.1 % (15.3-44.8); MCH 29.9 pg (27.0-35.0); MCHC 33.5 g/dL (32.0-36.0); MPV 7.2 fL (7.6-11.3); Neutrophils % 77.5 % (41.7-73.7); Platelets 327 thou/uL (152-406); RBC Red Blood Cell Count 4.34 M/uL (3.86-4.86); Red Cell Distribution Width 13.5 % (12.1-15.2)
[2023-09-10 12:01] LABS: Specific Gravity 1.012 (1.005-1.030); Urine Bilirubin NEGATIVE (Negative); Urine Blood Negative (Negative); Urine Clarity Clear (Clear); Urine Color Light-Yellow (Yellow); Urine Glucose NEGATIVE (Negative); Urine Ketones NEGATIVE (Negative); Urine Microscopic Reflex YN NO UMIC; Urine Nitrite NEGATIVE (Negative); Urine Protein NEGATIVE (Negative); Urine Urobilinogen Normal (Normal); Urine pH 6.5 (5.0-7.0)
[2023-09-10 12:10] LABS: PT Prothrombin Time 11.1 SECONDS (9.5-12.5); PTT, Activated Partial Thromb 28.1 SECONDS (24.3-36.9); Protime INR 1.01
[2023-09-10 12:22] LABS: ALT/SGPT 24 U/L (13-56); AST/SGOT 14 U/L (15-37); Albumin 3.7 g/dL (3.4-5.0); Albumin/Globulin Ratio 1.2 (1.1-1.8); Alkaline Phosphatase 58 U/L (45-117); Anion Gap 7.9 mEq/L (5.0-15.0); BUN Blood Urea Nitrogen 19 mg/dL (7-18); Bicarbonate 27 mEq/L (21-32); Bilirubin Total 0.3 mg/dL (0.2-1.0); Globulin 3.2 g/dL (2.3-3.5); Glomerular Filtration Rate 81 ml/min (=/>90); Glucose Level 105 mg/dL (74-106); Magnesium 2.3 mg/dL (1.6-2.4); Potassium 4.9 mEq/L (3.5-5.1); Protein, Total 6.9 g/dL (6.4-8.2); Sodium Level 138 mEq/L (136-145)
[2023-09-10 12:25] LABS: Bilirubin Direct < 0.1 mg/dL (0-0.2); Bilirubin Indirect, Calculated ND mg/dL (0.2-0.8)
[2023-09-10] MEDS ORDERED: NA CHLORIDE 0.9% 1,000 ML ONE (12:42)
--- NOTE | 2023-09-10 13:18 | ER ---
Nurse's Notes [facility] Name: Joanne Morales Age: 58 yrs Sex: Female : 1965 Arrival Date: 09/10/2023 Time: 10:51 Bed 15 Private MD: Diagnosis: Syncope Near Presentation: 09/09 11:01 Initial Sepsis Screen: Does the patient meet any 2 criteria? No. Patient's initial ph sepsis screen is negative. Does the patient have a suspected source of infection? No. Patient's initial sepsis screen is negative. Risk Assessment: Do you want to hurt yourself or someone else? Patient reports no desire to harm self or others. 11:01 Acuity: DEION 3 ph 11:01 Chief complaint: EMS states: Pt went for a 5 mile bike ride this morning, came home and ph while taking a shower began to have some dizziness and tingling to bilateral arms and legs, also report pain in back of neck, no weakness noted, sensation intact, VSS, BGL 95. Coronavirus screen: Vaccine status: Patient reports being unvaccinated. Ebola Screen: No symptoms or risks identified at this time. Note Pt ambulatory to restroom w/ steady gait noted. Onset of symptoms was September 10, 2023. 11:01 Method Of Arrival: EMS: [facility] Triage Assessment: 12:16 General: Appears in no apparent distress. comfortable, well groomed, Behavior is calm, ph cooperative, appropriate for age, Denies fever, feeling ill. 12:54 Pain: Complains of pain in left gluteus lee and right gluteus lee. Pain: ph Complains of pain in right posterior aspect of neck and left posterior aspect of neck. Neuro: Level of Consciousness is awake, alert, obeys commands, Oriented to person, place, time, situation, Director Learning And Development are equal bilaterally Moves all extremities. Gait is steady, Speech is normal, Facial symmetry appears normal, Pupils are PERRLA, Intact Tingling in right arm, left arm, right leg and left leg Reports paresthesias in right arm, left arm, right leg and left leg Denies weakness blurred vision difficulty swallowing, numbness. Cardiovascular: Capillary refill < 3 seconds in bilateral fingers Patient's skin is warm and dry. Respiratory: Airway is patent Respiratory effort is even, unlabored, Respiratory pattern is regular, symmetrical. Derm: Skin is pink, warm \T\ dry. Musculoskeletal: Circulation, motion, and sensation intact. Range of motion: intact in all extremities. Historical: - Allergies: 13:03 Sulfa (Sulfonamide Antibiotics); ph - PMHx: 13:03 Endometriosis of vagina; thyroid tumor; ph - PSHx: 13:03 partial thyroidectomy; Total abdominal hysterectomy; ph - Immunization history:: Adult Immunizations unknown. - Infectious Disease History:: Denies. - Social history:: Smoking status: Patient denies any tobacco usage or history of. Patient uses alcohol, occasionally. Screenin:[facility] ED Fall Risk Assessment (Adult) History of falling in the last 3 months, ph including since admission No falls in past 3 months (0 pts) Confusion or Disorientation No (0 pts) Intoxicated or Sedated No (0 pts) Impaired Gait No (0 pts) Mobility Assist Device Used No (0 pt) Altered Elimination No (0 pt) Score/Fall Risk Level 0 - 2 = Low Risk Oriented to surroundings, Maintained a safe environment, Hourly rounding (assess needs \T\ fall precautionary measures) done. Abuse screen: Denies threats or abuse. Denies injuries from another. Nutritional screening: No deficits noted. Tuberculosis screening: No symptoms or risk factors identified. Assessment: 11:35 General: Appears in no apparent distress. comfortable, Behavior is calm, cooperative, ph appropriate for age. Pain: Complains of pain in back of neck and bilateral buttocks and hips. Neuro: Reports tingling to upper and lower extremities bilaterally, sensation intact. Derm: Skin is pink, warm \T\ dry. Vital Signs: 11:01 BP 144 / 77; Resp 18; Temp 97.5; Pulse Ox 98% ; Weight 68.04 kg; Height 5 ft. 4 in. ; ph 12:18 BP 114 / 65 Supine; Pulse 56; mc5 12:18 BP 128 / 61 Sitting; Pulse 61; mc5 12:19 BP 118 / 72 Standing; Pulse 58; mc5 11:01 Body Mass Index 25.75 (68.04 kg, 162.56 cm) ph ED Course: 10:54 Patient arrived in ED. kb 10:54 Sruhti Rebolledo FNP-C [facility]. kb 10:54 Josr Castorena MD is Attending Physician. kb 11:01 Torres, Gladys, RN is Primary Nurse. ph 11:01 Triage completed. ph 11:08 EKG done, by ED staff, reviewed by Josr Castorena MD. 5 11:23 CT Head Brain wo Cont In Process Unspecified. EDMS 11:45 Initial lab(s) drawn, by me, sent to lab. Inserted saline lock: 22 gauge in right ph antecubital area, using aseptic technique. Blood collected. 12:14 Arm band placed on right wrist. ph 12:16 Patient has correct armband on for positive identification. Call light in reach. Side ph rails up X 1. 13:02 No provider procedures requiring assistance completed. ph Administered Medications: 13:19 Not Given (Other Intervention Used): ns 0.9% 1000 ml IV at 1000 ml once ph Medication: 12:15 VIS not applicable for this client. ph Outcome: 13:17 Discharge ordered by . kb 13:33 Patient left the ED. ph Signatures: Dispatcher [employer] EDKY Sruthi Rebolledo, BUSINESS OPERATIONS DIRECTOR-C BUSINESS OPERATIONS DIRECTOR-Ckb Gladys Torres, RN RN ph [place] 5 Corrections: (The following items were deleted from the chart) 12:18 12:18 BP 114 / 65 Supine; Pulse 56bpm; [facility] 12:57 12:16 General: Appears ph ph
--- NOTE | 2023-09-10 13:18 | EDPHYS ---
Physician Documentation [facility] Name: Joanne Morales Age: 58 yrs Sex: Female : 1965 Arrival Date: 09/10/2023 Time: 10:51 Bed 15 Private MD: ED Physician Josr Castorena HPI: 09/09 13:28 This 58 yrs old Female presents to ER via EMS with complaints of Numbness - Tingling of kb upper and lower extremities. 13:28 Patient is a 58-year-old female who presents for dizziness and tingling to extremities kb that started just prior to arrival. States she went on a 5 mile bike ride this morning, came home and took a hot shower and that is when the symptoms began. Denies syncope. States he went on a bike ride yesterday and did not have any symptoms but normally does not go on bike rides. Reports headache, tingling that is worse in the lower extremities have continued. Dizziness and tingling in upper extremities has resolved.. Historical: - Allergies: 13:03 Sulfa (Sulfonamide Antibiotics); ph - PMHx: 13:03 Endometriosis of vagina; thyroid tumor; ph - PSHx: 13:03 partial thyroidectomy; Total abdominal hysterectomy; ph - Immunization history:: Adult Immunizations unknown. - Infectious Disease History:: Denies. - Social history:: Smoking status: Patient denies any tobacco usage or history of. Patient uses alcohol, occasionally. ROS: 11:07 Constitutional: As per HPI kb Exam: 11:07 Constitutional: This is a well developed, well nourished patient who is awake, alert, kb and in no acute distress. Head/Face: Normocephalic, atraumatic. ENT: Moist Mucous membranes Cardiovascular: Regular rate Respiratory: Respirations even and unlabored. No increased work of breathing. Talking in full sentences Abdomen/GI: Soft, non-tender. No distention Skin: Warm, dry with normal turgor. Normal color. MS/ Extremity: Pulses equal, no cyanosis. Neurovascular intact. Full, normal range of motion. Neuro: Awake and alert, GCS 15, oriented to person, place, time, and situation. Moves all extremities. Normal gait. 11:07 ECG was reviewed by the Attending Physician. Vital Signs: 11:01 BP 144 / 77; Resp 18; Temp 97.5; Pulse Ox 98% ; Weight 68.04 kg; Height 5 ft. 4 in. ; ph 12:18 BP 114 / 65 Supine; Pulse 56; mc5 12:18 BP 128 / 61 Sitting; Pulse 61; mc5 12:19 BP 118 / 72 Standing; Pulse 58; mc5 11:01 Body Mass Index 25.75 (68.04 kg, 162.56 cm) ph MDM: 10:54 Patient medically screened. kb 13:27 Differential Diagnosis: cardiac arrhythmia, emotional response, idiopathic syncope, kb vasovagal episode. Data reviewed: vital signs, nurses notes. Historians other than the Patient: EMS: [facility]. Counseling: I had a detailed discussion with the patient and/or guardian regarding the historical points, exam findings, and any diagnostic results supporting the discharge/admit diagnosis, lab results, radiology results, the need for outpatient follow up, a family practitioner, to return to the emergency department if symptoms worsen or persist or if there are any questions or concerns that arise at home. ED course: Patient states she is feeling better and ready to go home.. 09/09 10:54 Order name: Basic Metabolic Panel; Complete Time: 12:26 kb 09/09 10:54 Order name: CBC with Diff; Complete Time: 12:10 kb 09/09 10:54 Order name: Hepatic Function; Complete Time: 12:26 kb 09/09 10:54 Order name: Magnesium; Complete Time: 12:26 kb 09/09 10:54 Order name: Protime (+inr); Complete Time: 12:10 kb 09/09 10:54 Order name: Ptt, Activated; Complete Time: 12:10 kb 09/09 10:54 Order name: Troponin High Sensitivity; Complete Time: 12:26 kb 09/09 10:54 Order name: Urinalysis w/ reflexes; Complete Time: 12:10 kb 09/09 10:54 Order name: CT Head Brain wo Cont; Complete Time: 11:30 kb 09/09 10:54 Order name: EKG; Complete Time: 10:55 kb 09/09 10:54 Order name: Cardiac monitoring; Complete Time: 11:08 kb 09/09 10:54 Order name: EKG - Nurse/Tech; Complete Time: 11:08 kb 09/09 10:54 Order name: IV Saline Lock; Complete Time: 12:11 kb 09/09 10:54 Order name: Labs collected and sent; Complete Time: 12:11 kb 09/09 10:54 Order name: NPO; Complete Time: 11:08 kb 09/09 10:54 Order name: O2 Per Protocol; Complete Time: 11:08 kb 09/09 10:54 Order name: O2 Sat Monitoring; Complete Time: 11:08 kb 09/09 10:54 Order name: Orthostatics; Complete Time: 12:19 kb EC: Rate is 55 beats/min. Rhythm is regular. QRS [place] is Normal. NC interval is normal at kb 130 msec. QRS interval is normal at 84 msec. QT interval is normal at 415 msec. Administered Medications: 13:19 Not Given (Other Intervention Used): ns 0.9% 1000 ml IV at 1000 ml once ph Disposition Summary: 09/10/23 13:17 Discharge Ordered Notes: Location: Home kb Condition: Stable kb Diagnosis - Syncope Near kb Followup: kb - With: Emergency Department - When: As needed - Reason: Worsening of condition Followup: kb - With: Private Physician - When: 2 - 3 days - Reason: Recheck today's complaints, Continuance of care, Re-evaluation by your physician Discharge Instructions: - Discharge Summary Sheet kb - Near-Syncope, [id number] kb Forms: - Medication Reconciliation Form kb - Thank You Letter kb - Antibiotic Education kb - Prescription Opioid Use kb - Patient Portal Instructions kb - Leadership Thank You Letter kb Signatures: Dispatcher [employer] EDMS Sruthi Rebolledo, CHRIS-Gladys Baxter RN RN ph Corrections: (The following items were deleted from the chart) 10:55 10:55 BASIC METABOLIC PANEL+C.LAB.BRZ ordered. EDMS EDMS 10:55 10:55 CBC+H.LAB.BRZ ordered. EDMS EDMS 10:55 10:55 HEPATIC FUNCTION+C.LAB.BRZ ordered. EDMS EDMS 10:55 10:55 MAGNESIUM+C.LAB.BRZ ordered. EDMS EDMS 10:55 10:55 PROTIME (+INR)+COAG.LAB.BRZ ordered. EDMS EDMS 10:55 10:55 PTT, ACTIVATED+COAG.LAB.BRZ ordered. EDMS EDMS 10:55 10:55 Troponin High Sensitivity+C.LAB.BRZ ordered. EDMS EDMS 10:55 10:55 Urinalysis+U.LAB.BRZ ordered. EDMS EDMS
[2023-09-10 16:39] VITALS: BP 118/72; TEMP 97.5; O2SAT 98
--- NOTE | 2023-09-11 12:43 | EKG ---
Test Date: 2023-09-10 Test Time: 11:05:32 Household Cook: GIORGI MEASUREMENT RESULTS: Intervals: Rate: 55 W[place]: 130 QRSD: 84 QT: 434 QTc: 415 [place]: P: 66 W[place]: 130 QRS: 25 T: 47 INTERPRETIVE STATEMENTS: Sinus bradycardia Otherwise normal ECG Compared to ECG 09/26/2022 21:48:19 Sinus rhythm no longer present Electronically Signed On 09-11-23 12:40:58 CDT by Kevyn Sparks
== END 2023-09-10 13:33 | disposition home or self-care (01) ==
LOC: ER 10:51
DX: R55 Syncope and collapse (principal); R20.0 Anesthesia of skin; Z88.2 Allergy status to sulfonamides
CPT/HCPCS: 93005; 85025; 80048; 36415; 83735; 85610; 80076; 85730; 81003; 84484; 70450; 99284; J7030